=== PATIENT | female | born 1990 | race Caucasian/White ===

== ENCOUNTER → 2020-02-08 11:00 | Outpatient (CLI) | payer OTHER, SELFPAY ==
--- NOTE | 2020-02-08 11:06 | XR_ITS ---
PROCEDURE: XR HIP LT 2-3V W/PELVIS CLINICAL INDICATION: HIP PAIN Left hip pain COMPARISON: No exams were available for comparison FINDINGS: There is sclerosis of the left SI joint inferiorly. There is an IUD present. No fracture or dislocation. The hip joint has an unremarkable appearance. IMPRESSION: Left sacroiliac sclerosis suggesting sacroiliitis Dictated by: Gregory Wiley MD 02/08/2020 11:28 Electronically signed by Gregory Wiley MD in [place] 02/08/2020 11:28
== END ==
PROVIDERS: PCP Nurse Practitioner Family; Visit Provider Nurse Practitioner Family
DX: M25.552 Pain in left hip (principal)
CPT/HCPCS: 73502

== ENCOUNTER 2020-04-19 16:00 | Outpatient (RCR) | payer OTHER, SELFPAY ==
--- NOTE | 2020-02-26 16:01 | HMH.PTOPEV ---
PT Outpatient Evaluation Rehab PT Outpatient Evaluation Start: 02/26/20 15:48 Freq: Status: Active Protocol: Document 02/26/20 15:48 HARRY (Rec: 02/26/20 16:00 HARRY [id number]) Electronically Signed By Tanvir Salmon, PT 02/26/20 15:48 Outpatient Therapy Subjective History Subjective History Patient is a 29 year old female presenting to outpatient PT with reports of chronic L hip pain of insidious onset starting approx 2 years ago. Most recent exacerbation started 2 months ago. No recent imaging to report. No comorbidities to report. Chief Complaint Pain Symptom Type Sharp Symptoms Relieved By Rest/Positioning,Ice,OTC Meds Symptoms Aggravated By Standing,Physical Activity, Walking Prior Functional Limitations None Current Functional Limitations Housework,Standing,Squatting, Recreation Activity,Walking, Stairs,Bending/Stooping Symptom Description Constant but Variable Level of pain today (0-10) 5 Pain scale - at its best (0-10) 3 Pain scale - at its worst (0-10) 8 Hip/Knee Eval Gait Observation General Gait Pattern Observation Antalgic Gait,Decrease Weight Bear (L) Assistive Device Assistive Devices None / NA Palpation Tenderness left Knee Palpation Overall Comment Greater trochanter 3/4 Hip Palpation Findings Tenderness MMT Hip Flexion Strength Grade 4- Good- Hip Abduction Strength Grade 4 Good Hip Adduction Strength Grade 4- Good- Hip Extension Strength Grade 3+ Fair+ Hip External Rotation Strength Grade 3+ Fair+ Hip Internal Rotation Strength Grade 3+ Fair+ Knee Extension Strength Grade 4 Good Knee Flexion Strength Grade 4 Good ROM Hip Flexion w/Knee Extended Passive 68 Range of Motion (degrees) Hip Abduction Passive Range of Motion ( 45 degrees) Hip Extension Passive Range of Motion ( 18 degrees) Hip External Rotation Passive Range of 45 Motion (degrees) Hip Internal Rotation Passive Range of 12 Motion (degrees) Knee ROM Reason Not Measured Within Functional Limits Special Tests Hip Twin's Test Positive Left Hip Isela's Test Positive Left Hip Darrel Test Positive Left Hip Piriformis Test Positive Left Outpatient Therapy Assessment Impairments Problems/Impairmments Palpation Tender
--- NOTE | 2020-03-30 15:59 | HMH.RHREAS ---
Rehab Reassessment Rehab OP Re-assessment Start: 03/30/20 15:36 Freq: Status: Active Protocol: Document 03/30/20 15:36 HARRY (Rec: 03/30/20 15:58 HARRY [id number]) Electronically Signed By Tanvir Salmon, PT 03/30/20 15:36 Rehab Re-assessment Subjective Subjective Patient reports 75% improvement since start of care. Objective Objective Notes AROM:WNL MMT:WNL Pain: 0 currently; 5/10 at worst over past week Neuro: WNL TTP: L greater trochanter Assessment Progress Assessment Progressing as Expected Assessment Notes Overall improvements noted. Decreased intensity, frequency and duration of symptoms per patient report. She continues to have difficulty with prolonged standing/ambulatory activities resulting in function limitations with household, recreational and work related activites. Patient goals met STG's Goals Not Met LTG's Revised Goals NA Plan Plan Continue with POC Frequency of Therapy 2x/week Duration of therapy 3 weeks Time and Billing Re-Eval Time 15 Re-Eval Billing Units 1 PHYSICIAN CERTIFICATION: I certify the specified therapy services for Estela Lopez are required, authorized, and reviewed every 30 days.
== END 2020-04-19 16:05 | disposition home or self-care (01) ==
LOC: PT 16:00
PROVIDERS: PCP Nurse Practitioner Family; Visit Provider Nurse Practitioner Family
DX: M25.552 Pain in left hip (principal)
CPT/HCPCS: 20561; 97010; 97014; 97035; 97110; 97163; 97164; G0283

== ENCOUNTER → 2020-05-02 09:02 | Outpatient (POV) | payer OTHER, SELFPAY ==
[2020-05-02 09:21] VITALS: BP 120/71; PULSE 90; RESP 18; TEMP 36.8; O2SAT 98; BMI 40.6
--- NOTE | 2020-05-02 09:37 | HMH.PMCON ---
Assessment and Plan (1) Sacroiliitis Current visit: Yes Status: Acute Category: Medical Code(s): M46.1 - Sacroiliitis, not elsewhere classified - Assessment and plan all Dx Assessment and Plan for all problems:: We will set the patient up for a left SI joint injection. Given her symptomology and diagnostic imaging I do believe this would be beneficial. I will follow-up with her after this reassess her symptoms at that time she has been instructed to call the office if she has any issues prior to her next appointment. Dr. Guillen has reviewed this note and agrees with this plan of care. This note was dictated using voice recognition software and may contain errors or omissions HPI - Data of Consult Consult date: 05/02/20 Requesting Physician: Ashley Franks APRN Primary Care Provider: Alessandra Arrieta APRN - Consult Narrative Reason for consult: Left sacroiliitis History of present illness: Ms. Lopez is a 29 year old female who presents today for consultation regards her left lower back and hip pain. She has had this for 3 years. Patient states that it is been off and on however it is much more severe than it has been. She has a left hip x-ray showing sacroiliitis. She has a positive Roger test SI joint compression test and Nabil's test on the left side. Patient rates her pain today a 7 out of 10 she states that it is constant. She states that increased activity increases pain while ice decreases pain. She is tried physical therapy with no relief. She is tried dry needling with some relief. She is interested in injective therapy. CC: Ashley Franks APRN [facility] History I have reviewed the patient's past medical history: Yes Medical History: Denies:: Cancer, Diabetes Mellitus Type 1, Diabetes Mellitus Type 2, MRSA *Have you ever received a pneumonia vaccine?: Yes *Have you received a flu vaccine this season?: Yes Other Surgeries: Yes: No Previous Surgery Amputation: No Fractures: No - *Social History Smoking Status: Never smoker Alcohol Intake: never *Occupational Status:: other Housing: other Household Members: other *Travel in the last 8 weeks: None Family Hx:: No significant family history Review of Systems - Review of Systems ROS General: no recent weight change, no fever, no sleep disturbances Respiratory: no cough, no shortness of air, no recurring pulmonary infections Cardiovascular/Peripheral Vascular: No chest pain, No palpitations, no edema, no shortness of breath. Gastrointestinal: no new onset incontinence, normal bowel movements reported Genitourinary: no new onset incontinence Musculoskeletal: Left SI joint pain Psychiatric: normal mood/ affect Neurological: [denies new onset weakness in extremities], [denies new onset balance issues] Meds Allergies Allergy/AdvReac Type Severity Reaction Status Date / Time promethazine [From Phenergan] Allergy Verified 06/26/18 11:27 Objective Vital signs: Temp Pulse Resp BP Pulse Ox 98.2 F 90 18 120/71 98 05/02/20 09:21 05/02/20 09:21 05/02/20 09:21 05/02/20 09:21 05/02/20 09:21 Narrative: Physical Exam General: Alert and oriented x3, no acute distress, pleasant and cooperative, [on room air] Lungs: Resps E/U, Symmetrical chest expansion, Eyes: PERRL Musculoskeletal: Flexion and extension of lumbar spine somewhat guarded secondary to pain, deep tendon reflexes normal, strength in upper and lower extremities [5/5], antalgic gait noted Neurological: speech clear, full stack web developer equal, no gross sensory deficits Opioid Risk Tool - Opioid Risk Tool-Female Family hx alcohol abuse: N Family hx illegal drugs: N Family hx rx drug abuse: N Personal hx alcohol abuse: N Personal hx illegal drugs: N Personal hx rx drug abuse: N Age: 16-45 Hx of sexual abuse: N Mental health issues-ADD,OCD,Bipolar, etc: N Hx of depression: N Female Risk Score: 1
== END ==
PROVIDERS: PCP Nurse Practitioner Family; Visit Provider Clinical Nurse Specialist Family Health
DX: M46.1 Sacroiliitis, not elsewhere classified (principal)
CPT/HCPCS: 99202

== ENCOUNTER 2020-05-13 10:16 | Day surgery (SDC) | payer OTHER, SELFPAY ==
[2020-05-13 10:51] VITALS: BP 129/82; PULSE 73; RESP 18; TEMP 36.7; O2SAT 99; BMI 40.8
[2020-05-13 11:40] VITALS: BP 125/88; PULSE 85; PULSE 87; RESP 18; O2SAT 99
--- NOTE | 2020-05-13 11:44 | HMH.PMPROC ---
- Procedure Date: 05/13/20 Time: 11:44 Anesthesiologist:: Eb Guillen MD Complications:: None Pre-procedure Diagnosis:: Sacroiliitis Post-procedure Diagnosis:: Same Indications for Procedure:: This patient is a pleasant 29-year-old white female who we are treating for left hip pain. She is tender over her left SI joint. She has a positive Nabil's test on left side. She is positive SI joint compression test on left side. She is positive Roger test on left side. We will do a left SI joint injection under fluoroscopy today to help her with her pain symptoms. Procedure Details:: Left SI joint injection under fluoroscopy Informed consent was obtained and the risks and benefits of the procedure was explained to the patient. Patient was taken to the procedure room. Patient was placed prone on the procedure table. The left hip was prepped using ChloraPrep. The skin and subcutaneous tissues were anesthetized using lidocaine. I placed a 22-gauge spinal needle into the inferior aspect of the left SI joint. Needle placement was confirmed with dye. After this we injected 5 mL bupivacaine 0.25% and Depo-Medrol 40 mg into the left SI joint. The patient tolerated the procedure well with no complication. Plan and Disposition:: We will follow-up with her in 2 weeks. Will reevaluate symptoms at that time.
[2020-05-13 11:50] VITALS: BP 117/76; PULSE 77; RESP 20; O2SAT 99
== END 2020-05-13 11:50 | disposition home or self-care (01) ==
LOC: SC.PAINP 10:17
PROVIDERS: PCP Nurse Practitioner Family; Visit Provider Anesthesiology
DX: M46.1 Sacroiliitis, not elsewhere classified (principal)
CPT/HCPCS: 27096; G0260; J1030; J1040; Q9966

== ENCOUNTER → 2020-06-02 08:46 | Outpatient (POV) | payer OTHER, SELFPAY ==
--- NOTE | 2020-06-02 09:11 | HMH.PAINSOAP ---
[facility] Pain Management SOAP Note Subjective:: Patient is a 29-year-old white female who presents today for follow-up. She has been treated for left hip pain and low back pain. She underwent a left SI joint injection. She says that her pain is a 3 out of 10 today. She says she is feeling much better overall. She does report to have some achiness, however, she says it is nothing that she can tolerate and did not even need to take Tylenol. Patient says she is doing much better since having the injection. Review of Systems General: No recent weight changes, no fever, no sleep disturbances Respiratory: No cough, no shortness of air, no recurring pulmonary infections Cardiovascular/peripheral vascular: No chest pain, no palpitations, no edema, no shortness of breath Gastrointestinal: No new onset incontinence, normal bowel movements reported Genitourinary: No new onset incontinence Musculoskeletal: Left hip pain, left low back pain Psychiatric: Normal mood/affect Neurological: [Denies weakness in extremities], [denies balance issues] Objective:: Physical exam General: Alert and oriented x3, no acute distress, pleasant and cooperative, [on room air] Lungs: Respirations even and unlabored, symmetrical chest expansion Eyes: PERRL Musculoskeletal: Flexion and extension of lumbar spine somewhat guarded secondary to pain, deep tendon reflexes normal, strength in upper and lower extremities [5/5], [abnormal gait noted] also Clayton's test, positive Nabil's test, positive distraction test Neurological: Speech clear, senior market intelligence consultant equal, no gross sensory deficit Assessment:: Left hip pain, left sacroiliitis Plan:: Overall, the patient is doing well after her injection. We will plan to follow-up with her in 3 to contact the clinic if she has any concerns before her next appointment. The patient and I specifically discussed risk factors for COVID19. These risks include, but are not limited to age greater than 60, heart or lung disease, diabetes, immunosuppression, and travel. We also discussed NSAIDs may worsen COVID19 infection or symptoms. Patient should not use NSAIDs to treat COVID19 signs or symptoms. Patient was also informed that any type of corticosteroid of any form (oral or injection) will decrease the patient's immune system response and may increase the likelihood of COVID19 infection and symptoms[address] Dr. Guillen has reviewed this note and agrees with this plan of care. This note was dictated using voice recognition software and make contain errors or omissions. [facility] History I have reviewed the patient's past medical history: Yes Medical History: Denies:: Cancer, Diabetes Mellitus Type 1, Diabetes Mellitus Type 2, MRSA, Seizures *Have you ever received a pneumonia vaccine?: No *Have you received a flu vaccine this season?: No Other Surgeries: Yes: No Previous Surgery Amputation: No Fractures: No - *Social History Smoking Status: Never smoker Alcohol Intake: never Alcohol Intake Frequency:: other *Occupational Status:: employed Housing: other Household Members: other *Travel in the last 8 weeks: None Family Hx:: No significant family history
[2020-06-02 09:38] VITALS: BP 114/70; PULSE 65; RESP 18; TEMP 36.8; O2SAT 98; BMI 40.4
== END ==
PROVIDERS: PCP Nurse Practitioner Family; Visit Provider Clinical Nurse Specialist Family Health
DX: M25.552 Pain in left hip (principal); M46.1 Sacroiliitis, not elsewhere classified
CPT/HCPCS: 99212

== ENCOUNTER → 2020-11-25 09:56 | Outpatient (CLI) | payer BC, SELFPAY ==
[2020-11-25 10:45] LABS: Basophils % 0.5 % (0.1-2.0); Eosinophils # 0.1 K/mm3 (0.0-0.4); Eosinophils % 0.8 % (0.1-12.0); Hematocrit 41.5 % (37.0-47.0); Hemoglobin 13.6 g/dL (12.2-16.2); Lymphocytes % 27.4 % (10-50); Mean Corpuscular HGB Conc 32.8 g/dL (31.8-35.4); Mean Corpuscular Hemoglobin 28.4 pg (27.0-31.2); Mean Corpuscular Volume 86.6 fl (81-99); Monocytes # 0.3 K/mm3 (0.1-1.0); Monocytes % 4.4 % (1.7-9.3); Neutrophils # 4.9 K/mm3 (1.8-7.8); Neutrophils % 66.8 % (37.0-80.0); Platelet Count 294 K/mm3 (142-424); Red Blood Count 4.79 M/mm3 (4.20-5.40); Red Cell Distribution Width 12.9 % (11.5-17.5); White Blood Count 7.3 K/mm3 (4.8-10.8)
[2020-11-25 15:03] LABS: Strep Scrn Group A (Rapid) Negative (Negative)
== END ==
PROVIDERS: PCP Physician Assistant; Visit Provider Physician Assistant
DX: Z20.822 Contact with and (suspected) exposure to COVID-19 (principal); J02.9 Acute pharyngitis, unspecified
CPT/HCPCS: 85025; 87430; U0003

== ENCOUNTER → 2021-11-02 11:59 | Outpatient (CLI) | payer BC, SELFPAY ==
[2021-11-02 12:56] LABS: Adenovirus,PCR Not Detected (NotDetected); Bordetella Pertussis Not Detected (NotDetected); Chlamydophila Pneumoniae, PCR Not Detected (NotDetected); Coronavirus 19, PCR Not Detected (NotDetected); Coronavirus 229E Not Detected (NotDetected); Coronavirus NL63 Not Detected (NotDetected); Coronavirus OC43 Not Detected (NotDetected); Coronovirus HKU1,PCR Not Detected (NotDetected); Human Metapneumovirus Not Detected (NotDetected); Influenza A, PCR Not Detected (NotDetected); Influenza AH1, 2009 Not Detected (NotDetected); Influenza AH1, PCR Not Detected (NotDetected); Influenza AH3,PCR Not Detected (NotDetected); Influenza B, PCR Not Detected (NotDetected); Mycoplasma Pneumoniae, PCR Not Detected (NotDetected); Parainfluenza 1, PCR Not Detected (NotDetected); Parainfluenza 2, PCR Not Detected (NotDetected); Parainfluenza 3, PCR Not Detected (NotDetected); Parainfluenza 4, PCR Not Detected (NotDetected); Respiratory Syncytial Virus Not Detected (NotDetected); Rhinovirus/Enterovirus Not Detected (NotDetected)
[2021-11-02 13:03] LABS: Basophils # 0.1 K/mm3 (0-0.2); Basophils % 0.9 % (0.1-2.0); Eosinophils # 0.1 K/mm3 (0.0-0.4); Eosinophils % 1.7 % (0.1-12.0); Hematocrit 41.3 % (37.0-47.0); Hemoglobin 13.9 g/dL (12.2-16.2); Lymphocytes # 2.2 K/mm3 (0.7-4.5); Lymphocytes % 28.8 % (10-50); Mean Corpuscular HGB Conc 33.6 g/dL (31.8-35.4); Mean Corpuscular Hemoglobin 29.7 pg (27.0-31.2); Mean Corpuscular Volume 88.6 fl (81-99); Mean Platelet Volume 8.6 fl (7.4-10.4); Monocytes # 0.4 K/mm3 (0.1-1.0); Monocytes % 4.5 % (1.7-9.3); Neutrophils # 4.9 K/mm3 (1.8-7.8); Neutrophils % 64.1 % (37.0-80.0); Platelet Count 335 K/mm3 (142-424); Red Blood Count 4.66 M/mm3 (4.20-5.40); Red Cell Distribution Width 12.8 % (11.5-17.5); White Blood Count 7.7 K/mm3 (4.8-10.8)
== END ==
PROVIDERS: PCP Family Medicine; Visit Provider Physician Assistant
DX: Z20.822 Contact with and (suspected) exposure to COVID-19 (principal)
CPT/HCPCS: 36415; 85025; 87581; 87632; 87798; C9803; U0003; U0005

== ENCOUNTER → 2021-11-13 10:32 | Outpatient (CLI) | payer BC, SELFPAY ==
[2021-11-13 12:34] LABS: Free Thyroxine Index 2.9 ug/dL (5.93-13.13); T4 (Thyroxine) 11.1 ug/dl (5.53-11.0); Triiodothryronine (T3) Uptake 26 % (23.5-40.5)
[2021-11-13 12:48] LABS: Thyroid Stimulating Hormone 1.43 uIU/mL (0.465-4.68)
[2021-11-14 08:21] LABS: FSH 6.9 mIU/mL (.)
== END ==
PROVIDERS: Visit Provider Nurse Practitioner Obstetrics & Gynecology
DX: N92.6 Irregular menstruation, unspecified (principal)
CPT/HCPCS: 36415; 83001; 83002; 84436; 84443; 84479

== ENCOUNTER → 2021-11-16 14:12 | Outpatient (CLI) | payer BC, SELFPAY ==
--- NOTE | 2021-11-16 14:13 | US_ITS ---
FINAL REPORT CLINICAL HISTORY: Irregular periods FINDINGS: Transvaginal Ultrasound Technique: Transvaginal sonographic images of the pelvis were obtained. Findings: The uterus measures 7.4 x 4.6 x 4.4 cm. The endometrium is unremarkable. The right ovary measures 2.8 cm and contains small follicles. There is a complex cyst measuring 4.1 x 3.0 cm within the left ovary with multiple internal echoes that may represent a hemorrhagic cyst or follicle. There is no significant free fluid. IMPRESSION: 4 cm complex left ovarian cyst. Recommend follow-up in 6 weeks or 10 weeks to ensure physiologic involution. Reviewed, Interpreted and Dictated by Jose Lyn MD Transcribed by Mohinder Sutton Authenticated by Jose Lyn MD on 11/16/2021 04:26:05 PM [facility]
== END ==
PROVIDERS: PCP Family Medicine; Visit Provider Nurse Practitioner Obstetrics & Gynecology
DX: N92.6 Irregular menstruation, unspecified (principal)
CPT/HCPCS: 76830

== ENCOUNTER → 2022-08-21 14:58 | Outpatient (CLI) | payer BC, SELFPAY ==
[2022-08-21 15:22] LABS: Basophils # 0.1 K/mm3 (0-0.2); Basophils % 1.3 % (0.1-2.0); Eosinophils # 0.1 K/mm3 (0.0-0.4); Eosinophils % 1.6 % (0.1-12.0); Hematocrit 42.8 % (37.0-47.0); Hemoglobin 14.5 g/dL (12.2-16.2); Lymphocytes # 2.8 K/mm3 (0.7-4.5); Lymphocytes % 33.3 % (10-50); Mean Corpuscular HGB Conc 33.9 g/dL (31.8-35.4); Mean Corpuscular Hemoglobin 29.6 pg (27.0-31.2); Mean Corpuscular Volume 87.1 fl (81-99); Mean Platelet Volume 8.6 fl (7.4-10.4); Monocytes # 0.4 K/mm3 (0.1-1.0); Monocytes % 4.7 % (1.7-9.3); Neutrophils % 59.2 % (37.0-80.0); Platelet Count 437 K/mm3 (142-424); Red Blood Count 4.91 M/mm3 (4.20-5.40); Red Cell Distribution Width 12.8 % (11.5-17.5); White Blood Count 8.4 K/mm3 (4.8-10.8)
[2022-08-21 15:29] LABS: Strep Scrn Group A (Rapid) Negative (Negative)
== END ==
PROVIDERS: PCP Nurse Practitioner Family; Visit Provider Nurse Practitioner Family
DX: Z20.822 Contact with and (suspected) exposure to COVID-19 (principal)
CPT/HCPCS: 36415; 85025; 87275; 87276; 87430; C9803; U0003; U0005

== ENCOUNTER 2022-12-15 08:04 | Emergency (ER) | payer OTHER, SELFPAY ==
[2022-12-15 08:10] VITALS: BP 143/82; PULSE 86; RESP 18; TEMP 36.7; O2SAT 99; BMI 39.1
[2022-12-15 08:13] VITALS: BP 137/73; PULSE 90; RESP 20; TEMP 36.4; O2SAT 98; BMI 39.1
[2022-12-15 08:21] VITALS: BMI 39.1
--- NOTE | 2022-12-15 08:21 | XR_ITS ---
PROCEDURE INFORMATION: Exam: XR Right Foot Exam date and time: 12/15/2022 8:31 AM Age: 31 years old Clinical indication: Pain; Ankle; Right; Additional info: Hurt ankle- during a fall TECHNIQUE: Imaging protocol: Radiologic exam of the right foot. Views: 3 or more views. COMPARISON: CR XR ANKLE RT 2V 12/15/2022 8:29 AM FINDINGS: Bones/joints: hindfoot-midfoot and midfoot-forefoot articulations are normal. metatarsals and the phalanges without an acute process. subtalar joint and the tibiotalar joint appears normal. Early spur formation at the insertion of the Achilles' tendon and plantar aponeurosis. Soft tissues: Oz navicularis less likely avulsion fragment. Correlate regarding tenderness. Mild soft tissue swelling. IMPRESSION: 1. Oz navicularis less likely avulsion fragment. Correlate regarding tenderness. Mild soft tissue swelling. 2. Early spur formation at the insertion of the Achilles' tendon and plantar aponeurosis.
--- NOTE | 2022-12-15 08:21 | XR_ITS ---
PROCEDURE INFORMATION: Exam: XR Right Ankle Exam date and time: 12/15/2022 8:29 AM Age: 31 years old Clinical indication: Pain; Ankle; Right; Additional info: Hurt ankle during a fall TECHNIQUE: Imaging protocol: Radiologic exam of the right ankle. Views: 1 or 2 views. COMPARISON: No relevant prior studies available. FINDINGS: Bones/joints: Medial and lateral malleoli are normal. Ankle mortise is symmetrical. No fracture. Hindfoot is unremarkable. Tibiotalar joint and the subtalar joint appears normal. Small tiny avulsion injuries involving the distal aspect of the fibula well distal to the tibial plafond. 2 mm and 1 mm. Soft tissue swelling. Soft tissues: See Bones/joints finding. IMPRESSION: Small tiny avulsion injuries involving the distal aspect of the fibula well distal to the tibial plafond. 2 mm and 1 mm. Soft tissue swelling.
--- NOTE | 2022-12-15 08:43 | EXP.UTC ---
Discharge Plan Disposition Patient Disposition: Home, Self-Care Condition: Good Prescriptions Prescriptions: New ibuprofen 800 mg tablet 800 mg PO TID PRN (Reason: pain) Qty: 30 0RF No Action norgestimate-ethinyl estradiol [Sprintec (28)] 0.25-35 mg-mcg tablet 1 tab PO DAILY Referrals Follow up/Referrals: Rolf Brock MD [Primary Care Provider] - See instructions Atilio Cloud JR, MD [Physician] - See instructions Activity Restrictions/Add. Instructions Additional Instructions/Restrictions: *weight bearing as tolerated *RICE, Rest the extremity, Ice 15-20 minutes 3-4 times daily, Compress- wear the bob wrap as discussed as much as possible to help reduce swelling and pain, Elevate the extremity when at rest *Bob wrap is for support and help control swelling, use it except in the shower. Be sure that is not to tight but not to loose either. Wear air cast when up walking. *Elevate when resting? *Ibuprofen 600-800mg every 6-8 hours as needed for pain an inflammation. If need something more can take Tylenol in between doses of Ibuprofen to help Immediately follow up with your family doctor for new or worsening of symptoms, or no noticeable improvement over the next 3-5 days Follow up with ortho this week. Clinical Impressions Clinical Impression: Avulsion injury of right ankle region Instructions Patient Instructions: DI for Ankle Pain Discharge ED Provider: Kiara Shipley [facility] HPI General Stated complaint: [id number] right ankle Mode of Arrival: Ambulatory Source of Information: Patient Limitations: No Limitations Time Seen by Provider: 12/15/22 08:35 Description of Symptoms (Recalled from Triage Doc. by RN): right ankle injury HEENT Symptoms (Recalled from RN notes): No Resp Symptoms (Recalled from RN notes): No Skin Symptoms (Recalled from RN notes): No MS Symptoms (Recalled from RN notes): Yes Functional Status (Recalled from RN notes): n/a History of Present Illness Provider Complaint: Pt relates that she was at a hotel and wearing her socks on slick floor. Pt stats that she slipped and twisted her right ankle on 12/13/22. She reports that she iced and elevated the ankle and it helped. She states that she flew home yesterday (2 hour flight) and the ankle is even more sore and swollen. She states that she is concerned she may have broken something. Related Data Home Medications Medication Instructions Recorded Confirmed norgestimate 0.25 mg-ethinyl 1 tab PO DAILY control 12/15/22 12/15/22 estradiol 35 mcg tablet (Sprintec (28)) Previous Rx's Medication Instructions Recorded ibuprofen 800 mg tablet 800 mg PO TID PRN pain #30 tabs 12/15/22 Allergies Allergy/AdvReac Type Severity Reaction Status Date / Time promethazine [From Phenergan] Allergy Verified 12/15/22 08:33 Worker's Comp Is this a Worker's Comp case?: No [facility] Disclaimer: The information contained in this section may have been updated after the patient was seen, as this information can be updated by other users. Social History Smoking Status: Never smoker alcohol intake: never current occupational status: other Travel in the last 8 weeks: None household members: other housing: other current occupational exposures/hazards: No caffeine: Yes ROS Obtained: Yes All systems reviewed & no additional complaints except as documented Constitutional Constitutional: Reports system reviewed and no additional complaints, except as documented Eyes Eyes: Reports system reviewed and no additional complaints, except as documented ENT Ears, Nose, Mouth, and Throat: Reports system reviewed and no additional complaints, except as documented Cardiovascular Cardiovascular: Reports system reviewed and no additional complaints, except as documented Respiratory Respiratory: Reports system reviewed and no additional complaints, ex
[2022-12-15 09:19] VITALS: BP 137/73; PULSE 90; RESP 20; TEMP 36.4; O2SAT 98
== END 2022-12-15 09:17 | disposition home or self-care (01) ==
PROVIDERS: Emergency Provider Nurse Practitioner Family; PCP Internal Medicine Adolescent Medicine
DX: S82.831A Other fracture of upper and lower end of right fibula, initial encounter for closed fracture (principal); W18.49XA Other slipping, tripping and stumbling without falling, initial encounter; Y92.59 Other trade areas as the place of occurrence of the external cause
CPT/HCPCS: 73600; 73630; 99213; G0463

== ENCOUNTER 2024-04-02 21:38 | Emergency (ER) | payer OTHER, SELFPAY ==
[2024-04-02 21:39] VITALS: BP 115/76; PULSE 97; RESP 18; TEMP 36.6; O2SAT 100; BMI 33.6
[2024-04-02 21:48] VITALS: BP 115/76; PULSE 93; O2SAT 99
--- NOTE | 2024-04-02 21:54 | PC.NURSE ---
PVR 42 ml
[2024-04-02] MEDS: ONDANSETRON 4MG/2ML VIAL 4 MG IV (22:31)
[2024-04-02] MEDS: MORPHINE 4MG/ML SYRINGE 4 MG IV (22:31)
--- NOTE | 2024-04-02 22:33 | CT_ITS ---
PROCEDURE INFORMATION: Exam: CT Abdomen And Pelvis With Contrast Exam date and time: 04/02/2024 10:58 PM Age: 33 years old Clinical indication: Abdominal pain; Additional info: Deep pelvic pain and pressure, difficulty voiding TECHNIQUE: Imaging protocol: Computed tomography of the abdomen and pelvis with contrast. Radiation optimization: All CT scans at this facility use at least one of these dose optimization techniques: automated exposure control; mA and/or kV adjustment per patient size (includes targeted exams where dose is matched to clinical indication); or iterative reconstruction. Contrast material: ISOVUE; Contrast volume: 75 ml; Contrast route: IV; COMPARISON: CR XR HIP LT 2-3V W/PELVIS 02/08/2020 11:09 AM FINDINGS: Lungs: Calcified granulomata, otherwise clear basilar lung parenchyma. Pleural spaces: No pleural fluid or pneumothorax. Heart: Heart size is normal. Liver: Normal configuration. Homogeneous parenchyma. Gallbladder and bile ducts: No regional inflammation. No calcified stones. No ductal dilation. Pancreas: Normal. No ductal dilation. Spleen: Normal. No splenomegaly. Adrenal glands: Normal configuration. Kidneys and ureters: Kidneys enhance symmetrically and demonstrate no evidence of mass, calculus, obstruction, or inflammation. Stomach and bowel: Unremarkable. No obstruction. No mural thickening. Appendix: Normal appendix is confirmed. Intraperitoneal space: No free air. No significant fluid collection. Vasculature: Normal caliber arterial structures. Lymph nodes: No enlarged lymph nodes. Urinary bladder: Unremarkable as visualized. Reproductive: 3.5 cm left adnexal cyst. Normal contour uterus. Normal appearance of the right ovary. No inflammation in either adnexa. Bones/joints: No fracture or destructive lesion. Soft tissues: No perineal/perianal abscess or inflammation. IMPRESSION: 3.5 cm left adnexal cyst, otherwise no acute abnormality to explain patient's symptoms.
[2024-04-02 22:37] LABS: Basophils % 0.4 % (0.1-2.0); Eosinophils # 0.1 K/mm3 (0.0-0.4); Eosinophils % 0.6 % (0.1-12.0); Hematocrit 43.8 % (37.0-47.0); Hemoglobin 14.2 g/dL (12.2-16.2); Lymphocytes # 1.8 K/mm3 (0.7-4.5); Lymphocytes % 16.6 % (10-50); Mean Corpuscular HGB Conc 32.4 g/dL (31.8-35.4); Mean Corpuscular Hemoglobin 29.2 pg (27.0-31.2); Mean Corpuscular Volume 90.3 fl (81-99); Mean Platelet Volume 8.4 fl (7.4-10.4); Monocytes # 0.3 K/mm3 (0.1-1.0); Monocytes % 2.9 % (1.7-9.3); Neutrophils # 8.8 K/mm3 (1.8-7.8); Neutrophils % 79.5 % (37.0-80.0); Platelet Count 331 K/mm3 (142-424); Red Blood Count 4.85 M/mm3 (4.20-5.40); Red Cell Distribution Width 13.7 % (11.5-17.5)
[2024-04-02 22:38] LABS: Chloride 100 mmol/L (98-107); Potassium 4.2 mmoL/L (3.5-5.1); Sodium 137 mmol/L (136-145)
[2024-04-02 22:41] LABS: Alanine Aminotransferase 30 U/L (12-78); Albumin Level 4.7 g/dl (3.5-5.0); Albumin/Globulin Ratio 1.4 (1.1-1.8); Alkaline Phosphatase 89 U/L (38-126); Anion Gap 14.2 mEq/L (5-15); Aspartate Amino Transferase 30 U/L (14-36); Bilirubin,Total 0.9 mg/dl (0.2-1.3); Blood Urea Nitrogen 9 mg/dl (7-17); Calcium 9.6 mg/dl (8.4-10.2); Carbon Dioxide 27 mmol/L (22.0-30.0); Creatinine Clearance Estimated 144 mL/min (50-200); Estimated Glomerular Filt Rate 96 ml/min (>60); GFR (African American) 116 ML/MIN (>60); Globulin 3.4 g/dL (1.3-3.2); Glucose 106 mg/dl (74-100); Total Protein,Serum 8.1 g/dl (6.3-8.2)
[2024-04-02] MEDS: ACETAMINOPHEN 1,000MG/100ML VIAL 1000 MG IV (22:43)
[2024-04-02] MEDS: KETOROLAC 30MG/ML VIAL 30 MG IV (22:43)
[2024-04-02 22:44] LABS: HCG Qualitative, Serum Negative (Negative)
--- NOTE | 2024-04-02 22:52 | ED_ITS ---
Discharge Plan Disposition Patient Disposition: Home, Self-Care Condition: Good Prescriptions Prescriptions: New cefdinir 300 mg capsule 300 mg PO BID 10 Days Qty: 20 0RF ketorolac 10 mg tablet 10 mg PO Q8H PRN (Reason: pain) 3 Days Qty: 10 0RF phenazopyridine [Pyridium] 200 mg tablet 200 mg PO Q8H PRN (Reason: pain) Qty: 10 0RF ondansetron 4 mg tablet,disintegrating 4 mg PO Q8H PRN (Reason: nausea and vomiting) 4 Days Qty: 12 0RF No Action norgestimate-ethinyl estradiol [Sprintec (28)] 0.25-35 mg-mcg tablet 1 tab PO DAILY ibuprofen 800 mg tablet 800 mg PO TID PRN (Reason: pain) Qty: 30 0RF Referrals Follow up/Referrals: Cheyanne Ramey DO [Staff Physician] - See instructions Leobardo Vences MD [Staff Physician] - See instructions Sarah James DO [Staff Physician] - See instructions Rolf Brock MD [Primary Care Provider] - See instructions Activity Restrictions/Add. Instructions Additional Instructions/Restrictions: You were evaluated in the emergency department today and diagnosed with an ovarian cyst as well as a urinary tract infection. Please follow-up closely with gynecology for your ovarian cyst. 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 Toradol is an anti-inflammatory to take as needed for pain. Do not take other NSAIDs, such as ibuprofen, while taking this medication. In addition to these medications, you may also take Tylenol every 4-6 hours as needed for pain. Return to the emergency department for new or worsening symptoms. Clinical Impressions Clinical Impression: Abdominal pain, Dysuria, UTI (urinary tract infection), Cyst of left ovary Stand Alone Forms Stand Alone Forms: Work/School Release Instructions Patient Instructions: DI for Urinary Tract Infection (UTI), DI for Ovarian Cyst Discharge ED Provider: Ignacia Mcintyre General Adult HPI <Gerson Cobian MD - Last Filed: 04/02/24 23:00> General Chief complaint: Urogenital-Female Stated complaint: Pressure,painful urination,difficulty voiding Time Seen by Provider: 04/02/24 22:17 Mode of Arrival: Ambulatory Source of Information: Patient Limitations: No Limitations Description of Symptoms (Recalled from ER Triage Doc. by RN): Patient reports that her and her spouse were out in breaks earlier today and she began to experience symptoms that she believed was the start of a urinary tract infection. Patient states that at approximately 2100 she began experiencing 10/10 suprapubic pain described as constant pressure. Patient also reports that the last time she's been able to have a full urination was at 1930. Patient states that when she tries to urinate sometimes a stream will start then becomes painful and will stop. History of Present Illness HPI narrative: Patient is a 33-year-old female with past medical history of previous ovarian cyst who presents emergency department for evaluation of difficulty voiding. Onset was acute, over the last 24 hours. She has had significant pressure and pain with voiding. She has had chronic left lower quadrant abdominal pain in the setting of her known ovarian cyst however this pain is different. She has associated nausea and suprapubic pain as well as dysuria. She has chronic vaginal bleeding so is difficult to tell when her actual menstrual cycle is, no discharge. Due to persistent symptoms she presents here for continued evaluation. Related Data Home Medications Medication Instructions Recorded Confirmed norgestimate 0.25 mg-ethinyl 1 tab PO DAILY control 12/15/22 12/15/22 estradiol 35 mcg tablet (Sprintec (28)) Previous Rx's Medication Instructions Recorded ibuprofen 800 mg tablet 800 mg PO TID PRN pain #30 tabs 12/15/22 cefdinir 300 mg capsule 300 mg PO BID 10 days #20 caps 04/03/24 ketorolac 10 mg tablet 10 mg PO Q8H PRN pain 3 days #10 04/03/24 tabs ondansetron 4 mg disintegrating 4 mg PO Q8H PRN nausea and 04/03/24 tablet vomiting 4 days #12 tabs phenazopyridine 200 mg tablet 200 mg PO Q8H PRN pain #10 tabs 04/03/24 (Pyridium) Allergies Allergy/AdvReac Type Severity Reaction Status Date / Time promethazine [From Phenergan] Allergy Verified 12/15/22 08:33 COUNT INCLUDES THE [facility] <Gerson Cobian MD - Last Filed: 04/02/24 23:00> COUNT INCLUDES THE [facility] Disclaimer: The information contained in this section may have been updated after the patient was seen, as this information can be updated by other users. Social History Smoking Status: Never smoker alcohol intake: never current occupational status: other Travel in the last 8 weeks: None household members: other housing: other current occupational exposures/hazards: No caffeine: Yes <Gerson Cobian MD - Last Filed: 04/02/24 23:00> ROS Obtained: Yes Systems reviewed as appropriate & no additional complaints except as documented Physical Exam <Gerson Cobian MD - Last Filed: 04/02/24 23:00> General General appearance: alert and in distress Head Head exam: atraumatic and normocephalic Eye Eye exam: Present PERRL ENT ENT exam: Present mucous membranes moist Neck Neck exam: Present normal inspection Chest Chest inspection: Present normal inspection and symmetric chest wall rise Respiratory Respiratory exam: Present normal lung sounds bilaterally; Absent respiratory distress Cardiovascular Cardiovascular exam: Present regular rate and normal rhythm Abdominal Exam Abdominal exam: Present soft and guarding (Voluntary); Absent tenderness Extremities Exam Extremities exam: Present normal inspection Neurological Exam Neurological exam: Present alert Psychiatric Psychiatric exam: Present normal affect Skin Skin exam: Present warm and dry Medical Decision Making <Gerson Cobian MD - Last Filed: 04/02/24 23:00> Wood Inquiry Pt receiving controlled substance: No Vital Signs: 04/02/24 21:39 04/02/24 21:48 04/02/24 23:06 Temperature 97.8 F Temperature Source Oral Pulse Rate 93 H 86 Pulse Rate [Left Radial] 97 H Respiratory Rate 18 Blood Pressure 115/76 109/76 L Blood Pressure [Right Arm] 115/76 Blood Pressure Mean 89 Blood Pressure Mean [Right Arm] 89 Blood Pressure Source [Right Arm] Automatic Cuff Blood Pressure Position [Right Arm] Sitting 02 Sat by Pulse Oximetry 100 99 99 Oxygen Delivery Method Room Air Room Air 04/02/24 23:15 04/02/24 23:30 04/02/24 23:45 Temperature Temperature Source Pulse Rate 74 71 85 Pulse Rate [Left Radial] Respiratory Rate Blood Pressure 115/76 99/65 L 92/60 L Blood Pressure [Right Arm] Blood Pressure Mean Blood Pressure Mean [Right Arm] Blood Pressure Source [Right Arm] Blood Pressure Position [Right Arm] 02 Sat by Pulse Oximetry 100 100 100 Oxygen Delivery Method 04/03/24 00:00 Temperature Temperature Source Pulse Rate 68 Pulse Rate [Left Radial] Respiratory Rate Blood Pressure 100/58 L Blood Pressure [Right Arm] Blood Pressure Mean Blood Pressure Mean [Right Arm] Blood Pressure Source [Right Arm] Blood Pressure Position [Right Arm] 02 Sat by Pulse Oximetry 100 Oxygen Delivery Method Lab Data Lab Results 04/02/24 22:22: WBC 11.0 H, RBC 4.85, Hgb 14.2, Hct 43.8, MCV 90.3, MCH 29.2, MCHC 32.4, RDW 13.7, Plt Count 331, MPV 8.4, Neut % (Auto) 79.5, Lymph % (Auto) 16.6, Elbert % (Auto) 2.9, Eos % (Auto) 0.6, Baso % (Auto) 0.4, Neut # (Auto) 8.8 H, Lymph # (Auto) 1.8, Elbert # (Auto) 0.3, Eos # (Auto) 0.1, Baso # (Auto) 0.0, Sodium 137, Potassium 4.2, Chloride 100, Carbon Dioxide 27, Anion Gap 14.2, BUN 9, Creatinine 0.70, Estimated Creat Clear 144, Estimated GFR 96, Est GFR ( Amer) 116, Glucose 106 H, Calcium 9.6, Total Bilirubin 0.9, AST 30, ALT 30, Alkaline Phosphatase 89, Total Protein 8.1, Albumin 4.7, Globulin 3.4 H, Albumin/Globulin Ratio 1.4, Serum HCG, Qual Negative 04/03/24 01:01: Urine Color Yellow, Urine Appearance Clear, Urine pH 7.0, Ur Specific [place] 1.010, Urine Protein Trace, Urine Glucose (UA) Negative, Urine Ketones Trace, Urine Blood 2+, Urine Nitrate Negative, Urine Bilirubin Negative, Urine Urobilinogen 1.0, Ur Leukocyte Esterase 1+ A, Urine RBC 5-10, Urine WBC 10-20, Ur Squamous Epith Cells Occasional, Urine Bacteria 2+ 04/02/24 22:22 04/02/24 22:22 Orders (Tests/Meds): ED MEDICATIONS Generic Name Dose Route Start Last Admin Trade Name Freq PRN Reason Stop Dose Admin Sodium Chloride 10 ml 04/02/24 23:05 04/02/24 23:06 Sodium Chloride 0.9% 10ml Syr (Rad Only) IV 05/02/24 23:04 10 ml NEEDED PRN Administration Maintain IV Site Discontinued Medications Generic Name Dose Route Start Last Admin Trade Name Radha PRN Reason Stop Dose Admin Acetaminophen 1,000 mg 04/02/24 22:35 04/02/24 22:43 Acetaminophen 1,000mg/100ml Vial IV 04/02/24 22:36 1,000 mg ONCE ONE Administration Ceftriaxone Sodium 2 gm/ 100 mls @ 200 mls/hr 04/03/24 01:23 04/03/24 01:30 Sodium Chloride IV 04/03/24 01:52 200 mls/hr ONCE ONE Administration Iopamidol 75 ml 04/02/24 23:05 04/02/24 23:06 Iopamidol-370 (76%);100ml Bottle IV 04/02/24 23:06 75 ml ONCE ONE Administration Ketorolac Tromethamine 30 mg 04/02/24 22:35 04/02/24 22:43 Ketorolac 30mg/Ml Vial IV 04/02/24 22:36 30 mg ONCE ONE Administration Morphine Sulfate 4 mg 04/02/24 22:29 04/02/24 22:31 Morphine 4mg/Ml Syringe IV 04/02/24 22:30 4 mg ONCE ONE Administration Ondansetron HCl 4 mg 04/02/24 22:29 04/02/24 22:31 Ondansetron 4mg/2ml Vial IV 04/02/24 22:30 4 mg ONCE ONE Administration ORDERS Category Date Time Status CT abdomen pelvis w con Stat Cat Scan 04/02/24 22:33 Completed US transvaginal Stat Exams 04/03/24 00:01 Completed CMP [Comprehensive Metabolic Panel] Stat Lab 04/02/24 22:22 Completed Complete Blood Count Auto Diff Stat Lab 04/02/24 22:22 Completed HCG Qualitative, Serum Stat Lab 04/02/24 22:22 Completed UA [Urinalysis and Microscopic] Stat Lab 04/03/24 01:01 Completed Urine Culture Stat Micro 04/03/24 01:01 Received Medical Decision Narrative: In summary patient is a 33-year-old female past medical history described above who presents emergency department for evaluation of abdominal pain. Patient is hemodynamically stable nontoxic-appearing upon arrival, afebrile. Differential diagnosis includes urinary tract infection, ureterolithiasis, referred pain from ovarian pathology, appendicitis, among others. Given this workup will be conducted with hematologic labs, urinalysis, CT of the abdomen pelvis with IV contrast. Initial inventions include multimodal pain control, crystalloid bolus, Zofran. Initial workup reviewed by me, hematologic labs are nonactionable, no significant leukocytosis, hCG negative, no LARA or critical electrolyte abnormality. CT abdomen pelvis and repeat evaluation pending at time of transfer of care to the oncoming physician, Dr. Mcintyre. <Ignacia N Francisco Javier, DO - Last Filed: 04/03/24 01:58> Vital Signs: 04/02/24 21:39 04/02/24 21:48 04/02/24 23:06 Temperature 97.8 F Temperature Source Oral Pulse Rate 93 H 86 Pulse Rate [Left Radial] 97 H Respiratory Rate 18 Blood Pressure 115/76 109/76 L Blood Pressure [Right Arm] 115/76 Blood Pressure Mean 89 Blood Pressure Mean [Right Arm] 89 Blood Pressure Source [Right Arm] Automatic Cuff Blood Pressure Position [Right Arm] Sitting 02 Sat by Pulse Oximetry 100 99 99 Oxygen Delivery Method Room Air Room Air 04/02/24 23:15 04/02/24 23:30 04/02/24 23:45 Temperature Temperature Source Pulse Rate 74 71 85 Pulse Rate [Left Radial] Respiratory Rate Blood Pressure 115/76 99/65 L 92/60 L Blood Pressure [Right Arm] Blood Pressure Mean Blood Pressure Mean [Right Arm] Blood Pressure Source [Right Arm] Blood Pressure Position [Right Arm] 02 Sat by Pulse Oximetry 100 100 100 Oxygen Delivery Method 04/03/24 00:00 Temperature Temperature Source Pulse Rate 68 Pulse Rate [Left Radial] Respiratory Rate Blood Pressure 100/58 L Blood Pressure [Right Arm] Blood Pressure Mean Blood Pressure Mean [Right Arm] Blood Pressure Source [Right Arm] Blood Pressure Position [Right Arm] 02 Sat by Pulse Oximetry 100 Oxygen Delivery Method Lab Data Lab Results 04/02/24 22:22: WBC 11.0 H, RBC 4.85, Hgb 14.2, Hct 43.8, MCV 90.3, MCH 29.2, MCHC 32.4, RDW 13.7, Plt Count 331, MPV 8.4, Neut % (Auto) 79.5, Lymph % (Auto) 16.6, Elbert % (Auto) 2.9, Eos % (Auto) 0.6, Baso % (Auto) 0.4, Neut # (Auto) 8.8 H, Lymph # (Auto) 1.8, [place]bert # (Auto) 0.3, Eos # (Auto) 0.1, Baso # (Auto) 0.0, Sodium 137, Potassium 4.2, Chloride 100, Carbon Dioxide 27, Anion Gap 14.2, BUN 9, Creatinine 0.70, Estimated Creat Clear 144, Estimated GFR 96, Est GFR ( Amer) 116, Glucose 106 H, Calcium 9.6, Total Bilirubin 0.9, AST 30, ALT 30, Alkaline Phosphatase 89, Total Protein 8.1, Albumin 4.7, Globulin 3.4 H, Albumin/Globulin Ratio 1.4, Serum HCG, Qual Negative 04/03/24 01:01: Urine Color Yellow, Urine Appearance Clear, Urine pH 7.0, Ur Specific [place] 1.010, Urine Protein Trace, Urine Glucose (UA) Negative, Urine Ketones Trace, Urine Blood 2+, Urine Nitrate Negative, Urine Bilirubin Negative, Urine Urobilinogen 1.0, Ur Leukocyte Esterase 1+ A, Urine RBC 5-10, Urine WBC 10-20, Ur Squamous Epith Cells Occasional, Urine Bacteria 2+ Orders (Tests/Meds): ED MEDICATIONS Generic Name Dose Route Start Last Admin Trade Name Freq PRN Reason Stop Dose Admin Sodium Chloride 10 ml 04/02/24 23:05 04/02/24 23:06 Sodium Chloride 0.9% 10ml Syr (Rad Only) IV 05/02/24 23:04 10 ml NEEDED PRN Administration Maintain IV Site Discontinued Medications Generic Name Dose Route Start Last Admin Trade Name Freq PRN Reason Stop Dose Admin Acetaminophen 1,000 mg 04/02/24 22:35 04/02/24 22:43 Acetaminophen 1,000mg/100ml Vial IV 04/02/24 22:36 1,000 mg ONCE ONE Administration Ceftriaxone Sodium 2 gm/ 100 mls @ 200 mls/hr 04/03/24 01:23 04/03/24 01:30 Sodium Chloride IV 04/03/24 01:52 200 mls/hr ONCE ONE Administration Iopamidol 75 ml 04/02/24 23:05 04/02/24 23:06 Iopamidol-370 (76%);100ml Bottle IV 04/02/24 23:06 75 ml ONCE ONE Administration Ketorolac Tromethamine 30 mg 04/02/24 22:35 04/02/24 22:43 Ketorolac 30mg/Ml Vial IV 04/02/24 22:36 30 mg ONCE ONE Administration Morphine Sulfate 4 mg 04/02/24 22:29 04/02/24 22:31 Morphine 4mg/Ml Syringe IV 04/02/24 22:30 4 mg ONCE ONE Administration Ondansetron HCl 4 mg 04/02/24 22:29 04/02/24 22:31 Ondansetron 4mg/2ml Vial IV 04/02/24 22:30 4 mg ONCE ONE Administration ORDERS Category Date Time Status CT abdomen pelvis w con Stat Cat Scan 04/02/24 22:33 Completed US transvaginal Stat Exams 04/03/24 00:01 Completed CMP [Comprehensive Metabolic Panel] Stat Lab 04/02/24 22:22 Completed Complete Blood Count Auto Diff Stat Lab 04/02/24 22:22 Completed HCG Qualitative, Serum Stat Lab 04/02/24 22:22 Completed UA [Urinalysis and Microscopic] Stat Lab 04/03/24 01:01 Completed Urine Culture Stat Micro 04/03/24 01:01 Received Medical Decision Narrative: In summary patient is a 33-year-old female past medical history described above who presents emergency department for evaluation of abdominal pain. Patient is hemodynamically stable nontoxic-appearing upon arrival, afebrile. Differential diagnosis includes urinary tract infection, ureterolithiasis, referred pain from ovarian pathology, appendicitis, among others. Given this workup will be conducted with hematologic labs, urinalysis, CT of the abdomen pelvis with IV contrast. Initial inventions include multimodal pain control, crystalloid bolus, Zofran. Initial workup reviewed by me, hematologic labs are nonactionable, no significant leukocytosis, hCG negative, no ALRA or critical electrolyte abnormality. CT abdomen pelvis and repeat evaluation pending at time of transfer of care to the oncoming physician, Dr. Mcintyre. Francisco Javier, DO: On my assessment of the patient, she is resting comfortably but can planes of some lingering pain. CT scan demonstrates ovarian cyst, and given continued pain, transvaginal ultrasound was ordered to evaluate for possible ovarian torsion. I independently interpreted ultrasound prior to radiology read and noted good blood flow to her ovaries. Please see radiology read for final interpretation. Urine is concerning for infection with leukocyte esterase, bacteria, blood, as well as with trace proteinuria, which could indicate pyelonephritis. Given this, patient was given a dose of IV Rocephin here. She is resting comfortably on repeat examination, and I do feel that discharge home is appropriate with close outpatient follow-up and strict return precautions. She was given prescriptions for cefdinir, Pyridium, Zofran, and Toradol. She was given instructions for gynecology follow-up given her ovarian cyst. Patient was discharged with very strict return precautions after all questions were answered. Critical Care <Gerson Cobian MD - Last Filed: 04/02/24 23:00> Critical Care Time Critical Care Time: No
[2024-04-02 23:06] VITALS: BP 109/76; PULSE 86; O2SAT 99
[2024-04-02] MEDS: IOPAMIDOL-370 (76%);100ML BOTTLE 75 ML IV (23:06)
[2024-04-02] MEDS: SODIUM CHLORIDE 0.9% 10ML SYR (RAD ONLY) 10 ML IV (23:06)
--- NOTE | 2024-04-02 23:06 | PC.NURSE ---
I rounded on the pt. no new complaints at this time. vss. pt states she still feels pressure in her abd but the pain is almost gone. 12/28
[2024-04-02 23:15] VITALS: BP 115/76; PULSE 74; O2SAT 100
[2024-04-02 23:30] VITALS: BP 99/65; PULSE 71; O2SAT 100
[2024-04-02 23:45] VITALS: BP 92/60; PULSE 85; O2SAT 100
[2024-04-03] VITALS: BP 100/58; PULSE 68; O2SAT 100
--- NOTE | 2024-04-03 00:01 | US_ITS ---
PROCEDURE INFORMATION: Exam: US Pelvis, Transvaginal, Non-Obstetric Exam date and time: 04/03/2024 12:30 AM Age: 33 years old Clinical indication: Pelvic pain; Additional info: Large cyst, pelvic pain, R/O torsion TECHNIQUE: Imaging protocol: Real-time transvaginal pelvic (non-obstetric) ultrasound with image documentation. Transvaginal imaging was used for better evaluation of the endometrium, adnexa, and/or cervix. COMPARISON: US TRANSVAGINAL 11/16/2021 2:28 PM FINDINGS: Uterus: Normal uniform endometrium. Right ovary/adnexa: Physiologic appearance of the right ovary measuring 1.9 x 3.4 x 2.0 cm. Color Doppler flow imaging and spectral analysis confirm appropriate arterial and venous waveforms. Left ovary/adnexa: Left ovary is expanded by a large cyst. Left ovary measures 3.8 x 3.4 x 4.2 cm for a volume of 28 cc. Dominant cyst measures 3.1 cm in diameter. Color Doppler flow imaging and spectral analysis confirm appropriate arterial and venous waveforms. Urinary bladder: Urinary bladder is limited. Intraperitoneal space: No free fluid. IMPRESSION: Dominant cyst noted in the left ovary. Normal blood flow is confirmed in each ovary.
--- NOTE | 2024-04-03 00:01 | PC.NURSE ---
contacted rad for ultrasound secondary to r/o torsion
--- NOTE | 2024-04-03 01:00 | PC.NURSE ---
returned from US via [employer] and [employer]
[2024-04-03 01:05] LABS: Microscopic, Urine URINE MICROSCOPIC (MICROSCOPIC)
[2024-04-03 01:06] LABS: Appearance,Urine CLEAR (Clear); Bilirubin,Urine Negative (Negative); Blood, Urine 2+ (Negative); Color,Urine YELLOW (Yellow); Glucose,Urine (UA) Negative (Negative); Ketones,Urine TRACE (Negative); Leukocyte Esterase,Urine 1+ (Negative); Nitrate,Urine Negative (Negative); Protein,Urine TRACE (Negative)
[2024-04-03 01:22] LABS: Bacteria,Urine 2+ /lpf; Squamous Epithelial Cell,Urine Occasional #/hpf (0-5)
[2024-04-03] MEDS: CEFTRIAXONE SODIUM 2 GM in 0.9 % SODIUM CHLORIDE 100 ML IV (01:30)
[2024-04-03 02:08] VITALS: BP 118/68; PULSE 78; RESP 18; TEMP 36.9; O2SAT 99
== END 2024-04-03 02:10 | disposition home or self-care (01) ==
PROVIDERS: Emergency Medicine; Emergency Provider Emergency Medicine; PCP Internal Medicine Adolescent Medicine
DX: R10.32 Left lower quadrant pain; N39.0 Urinary tract infection, site not specified; B96.1 Klebsiella pneumoniae [K. pneumoniae] as the cause of diseases classified elsewhere; R30.0 Dysuria; N83.202 Unspecified ovarian cyst, left side; R11.0 Nausea
CPT/HCPCS: 74177; 76830; 80053; 81001; 84703; 85025; 87086; 87088; 87186; 96365; 96375; 99285; J0131; J0696; J1885; J2270; J2405; Q9967

== ENCOUNTER 2024-06-07 22:17 | Emergency (ER) | payer OTHER, SELFPAY ==
[2024-06-07 22:17] VITALS: BP 110/74; PULSE 80; RESP 18; TEMP 36.6; O2SAT 97; BMI 34.0
[2024-06-07 22:30] VITALS: BP 117/80; PULSE 82; RESP 26; O2SAT 99
--- NOTE | 2024-06-07 22:40 | ECG_ITS ---
APPROVED REPORT Exam: Resting ECG HR:87 bpm ECG Measurements Heart Rate 87 AXES IN 132 P 50 QRSd 85 QRS 47 QT 357 T 49 QTc 402 Conclusion Sinus rhythm Electronically signed by : SHERRELL OLVERA, 06/07/2024 23:28:03
--- NOTE | 2024-06-07 22:40 | XR_ITS ---
PROCEDURE INFORMATION: Exam: XR Chest Exam date and time: 06/07/2024 11:42 PM Age: 33 years old Clinical indication: Pain; Chest pressure; Additional info: Chest pain TECHNIQUE: Imaging protocol: Radiologic exam of the chest. Views: 2 views. COMPARISON: CT ABDOMEN PELVIS W CON 04/02/2024 10:58 PM FINDINGS: Lungs: Unremarkable. No consolidation. Pleural spaces: Unremarkable. No pleural effusion. No pneumothorax. Heart/Mediastinum: Unremarkable. No cardiomegaly. Vasculature: Unremarkable. Bones/joints: Unremarkable. IMPRESSION: No acute findings.
[2024-06-07 22:46] LABS: Basophils # 0.1 K/mm3 (0-0.2); Basophils % 0.7 % (0.1-2.0); Eosinophils # 0.1 K/mm3 (0.0-0.4); Eosinophils % 0.9 % (0.1-12.0); Hematocrit 39.2 % (37.0-47.0); Hemoglobin 13.1 g/dL (12.2-16.2); Lymphocytes # 2.8 K/mm3 (0.7-4.5); Lymphocytes % 29.6 % (10-50); Mean Corpuscular HGB Conc 33.4 g/dL (31.8-35.4); Mean Corpuscular Hemoglobin 29.4 pg (27.0-31.2); Mean Corpuscular Volume 88.3 fl (81-99); Mean Platelet Volume 8.8 fl (7.4-10.4); Monocytes # 0.4 K/mm3 (0.1-1.0); Monocytes % 4.8 % (1.7-9.3); Platelet Count 320 K/mm3 (142-424); Red Blood Count 4.43 M/mm3 (4.20-5.40); Red Cell Distribution Width 13.1 % (11.5-17.5); White Blood Count 9.3 K/mm3 (4.8-10.8)
[2024-06-07 22:48] LABS: Albumin Level 4.5 g/dl (3.5-5.0); Chloride 104 mmol/L (98-107); Potassium 3.4 mmoL/L (3.5-5.1); Sodium 138 mmol/L (136-145)
[2024-06-07 22:51] LABS: Alanine Aminotransferase 29 U/L (12-78); Albumin/Globulin Ratio 1.5 (1.1-1.8); Alkaline Phosphatase 82 U/L (38-126); Anion Gap 8.4 mEq/L (5-15); Aspartate Amino Transferase 29 U/L (14-36); Bilirubin,Total 0.8 mg/dl (0.2-1.3); Blood Urea Nitrogen 10 mg/dl (7-17); Carbon Dioxide 29 mmol/L (22.0-30.0); Creatinine Clearance Estimated 170 mL/min (50-200); Estimated Glomerular Filt Rate 114 ml/min (>60); GFR (African American) 138 ML/MIN (>60); Total Protein,Serum 7.5 g/dl (6.3-8.2)
[2024-06-07 22:52] LABS: Calcium 8.9 mg/dl (8.4-10.2); Glucose 126 mg/dl (74-100)
--- NOTE | 2024-06-07 22:57 | HMH.EDCP ---
Discharge Plan Disposition Patient Disposition: Home, Self-Care Condition: Good Prescriptions Prescriptions: New omeprazole 20 mg capsule,delayed release(DR/EC) 20 mg PO DAILY 14 Days Qty: 14 0RF No Action prochlorperazine maleate 5 mg tablet PO PRN Patient Comments: TAKE 1 TABLET BY MOUTH THREE TIMES DAILY NEEDED Referrals Follow up/Referrals: Gabrielle Coulter MD [Primary Care Provider] - See instructions Activity Restrictions/Add. Instructions Additional Instructions/Restrictions: You were evaluated in the ER and are appropriate for discharge at this time. Take the prescribed omeprazole as directed. Make an appointment with your primary care physician for reevaluation in a few days. Return to the ER with new, worsening, or otherwise concerning symptoms. Clinical Impressions Clinical Impression: Abdominal pain, epigastric, Chest pain Print Language Print Language: Syriac Discharge ED Provider: Ian Trevino General Chief Complaint: Chest Pain Stated Complaint: CP Time Seen by Provider: 06/07/24 22:55 Mode of Arrival: Ambulatory Source of Information: Patient Limitations: No Limitations Description of Symptoms (Recalled from ER Triage Doc. by RN): Pt presents with chest pain that started at 2000, pt thought it was indigestion, pain has increased over the past couple hours. No cardiac hx, no SOA History of Present Illness HPI narrative: 33-year-old female presents to the ER with complaints of chest/upper abdominal pain that started around 8 PM. Patient thought it was indigestion because she has had nausea and 1 episode of emesis. She states pain has increased over the past couple hours. She has no history of cardiac abnormalities or pulmonary problems. She has no known history of gallbladder problems. She points to the epigastric region when reporting the majority of her pain but states it radiates across the top of the abdomen both to the left and the right. She also reports this pain radiates through to her back. She describes it as gradual onset but progressively worsening. She reports an history of allergy to Phenergan and worsening nausea with Zofran. She states she tried taking Tums and ibuprofen at home without relief. Patient does report that this weekend she had a few mixed drinks, but she does not report a otherwise significant alcohol intake at baseline. ROS otherwise negative Related Data Home Medications ?Medication ?Instructions ?Recorded ?Confirmed prochlorperazine maleate 5 mg mg PO PRN 04/09/24 05/05/24 tablet Previous Rx's ?Medication ?Instructions ?Recorded omeprazole 20 mg capsule,delayed 20 mg PO DAILY 14 days #14 caps 06/08/24 release Allergies Allergy/AdvReac Type Severity Reaction Status Date / Time promethazine [From Phenergan] Allergy Verified 05/05/24 08:53 [facility] Disclaimer: The information contained in this section may have been updated after the patient was seen, as this information can be updated by other users. Medical History (Updated 06/08/24 @ 02:45 by Ian Trevino MD) Dysuria Ovarian cyst Surgical History No history of previous surgery Family History Other Cancer Thyroid disorder Social History Smoking Status: Never smoker alcohol intake: never current occupational status: other Travel in the last 8 weeks: None household members: other housing: other current occupational exposures/hazards: No caffeine: Yes ROS Obtained: Yes All systems reviewed & no additional complaints except as documented Positive ROS per HPI Physical Exam General General appearance: alert Comment: Patient is clearly in pain but in no acute distress, nontoxic appearing Head Head exam: atraumatic and normocephalic Eye Eye exam: Present PERRL and EOMI ENT ENT exam: Present mucous membranes moist Neck Neck exam: Present normal inspection and full ROM Chest Chest inspection: Present symmetric chest wall rise Respiratory Respiratory exam: Present normal lung sounds bilaterally; Absent respiratory distress, wheezes or stridor Cardiovascular Cardiovascular exam: Present regular rate and normal rhythm Abdominal Exam Abdominal exam: Present soft and tenderness (Epigastric and left upper quadrant); Absent distention, guarding, rebound or rigidity Extremities Exam Extremities exam: Present full ROM; Absent edema Neurological Exam Neurological exam: Present alert and oriented X3; Absent motor sensory deficit Psychiatric Psychiatric exam: Present normal affect and normal mood Skin Skin exam: Present warm and dry HEART Score HEART Score HEART Score assessment performed?: Yes History (anamnesis): Slightly suspicious ECG: Normal Age: <45 years Risk factors: 1-2 risk factors Troponin: </= normal limit HEART Score: 1 Critical Care Critical Care Time Critical Care Time: No Medical Decision Making Medical Records Medical records reviewed: Yes I reviewed the patient's medical records. MR Comment: Most recent exam with [employer] in April was reassuring. Routine Pap smear with HPV testing was sent. Patient was evaluated for abdominal pain in our ER in March. Labs at that time were reassuring. CT imaging demonstrated ovarian cyst for which transvaginal ultrasound was performed. No torsion. Patient did have UTI. Wood Inquiry Pt receiving controlled substance: No Vital Signs Vital Signs: 06/07/24 22:17 06/07/24 22:30 06/07/24 23:31 Temperature 98 F Temperature Source Oral Pulse Rate 82 78 Pulse Rate [Left] 80 Respiratory Rate 18 26 H 16 Blood Pressure 117/80 92/55 L Blood Pressure [Right Arm] 110/74 Blood Pressure Mean 89 Blood Pressure Mean [Right Arm] 86 Blood Pressure Source Automatic Cuff Blood Pressure Position Supine Blood Pressure Position [Right Arm] Sitting 02 Sat by Pulse Oximetry 97 99 100 Oxygen Delivery Method Room Air Room Air Lab Data Labs: Lab Results 06/07/24 22:20: WBC 9.3, RBC 4.43, Hgb 13.1, Hct 39.2, MCV 88.3, MCH 29.4, MCHC 33.4, RDW 13.1, Plt Count 320, MPV 8.8, Neut % (Auto) 64.0, Lymph % (Auto) 29.6, [place] % (Auto) 4.8, Eos % (Auto) 0.9, Baso % (Auto) 0.7, Neut # (Auto) 6.0, Lymph # (Auto) 2.8, [place] # (Auto) 0.4, Eos # (Auto) 0.1, Baso # (Auto) 0.1, Sodium 138, Potassium 3.4 L, Chloride 104, Carbon Dioxide 29, Anion Gap 8.4, BUN 10, Creatinine 0.60, Estimated Creat Clear 170, Estimated GFR 114, Est GFR ( Amer) 138, Glucose 126 H, Calcium 8.9, Total Bilirubin 0.8, AST 29, ALT 29, Alkaline Phosphatase 82, Troponin I < 0.01, Total Protein 7.5, Albumin 4.5, Globulin 3.0, Albumin/Globulin Ratio 1.5, Lipase 84, Serum HCG, Qual Negative 06/08/24 02:00: Troponin I < 0.01 06/07/24 22:20 06/07/24 22:20 Response Orders (Tests/Meds): ED MEDICATIONS Generic Name Dose Route Start Last Admin Trade Name Freq PRN Reason Stop Dose Admin Sodium Chloride 10 ml 06/08/24 00:04 06/08/24 00:05 Sodium Chloride 0.9% 10ml Syr (Rad Only) IV 07/08/24 00:03 10 ml NEEDED PRN Administration Maintain IV Site Discontinued Medications Generic Name Dose Route Start Last Admin Trade Name Freq PRN Reason Stop Dose Admin Hydromorphone HCl 0.5 mg 06/07/24 23:04 06/07/24 23:21 Hydromorphone 2mg/Ml Syringe IV 06/07/24 23:05 0.5 mg ONCE ONE Administration Lactated Ringer's 1,000 mls @ 999 mls/hr 06/07/24 23:04 06/07/24 23:20 Lactated Ringer's 1000 Ml Bag IV 06/08/24 00:04 999 mls/hr .Q1H1M ONE Administration Iopamidol 75 ml 06/08/24 00:04 06/08/24 00:05 Iopamidol-370 (76%);100ml Bottle IV 06/08/24 00:05 75 ml ONCE ONE Administration Metoclopramide HCl 10 mg 06/07/24 23:09 06/07/24 23:21 Metoclopramide Hcl 10mg/2ml Vial IVP 06/07/24 23:10 10 mg ONCE ONE Administration ORDERS Category Date Time Status CT abdomen pelvis w con Stat Cat Scan 06/07/24 23:20 Completed XR chest 2V Stat Exams 06/07/24 22:40 Completed Beta HCG, Qual [HCG Qualitative, Serum] Stat Lab 06/07/24 22:20 Completed Complete Blood Count Auto Diff Stat Lab 06/07/24 22:20 Completed Comprehensive Metabolic Panel Stat Lab 06/07/24 22:20 Completed Lipase Stat Lab 06/07/24 22:20 Completed Troponin I Q3H Lab 06/07/24 22:20 Completed Troponin I Q3H Lab 06/08/24 02:00 Completed Troponin I Q3H Lab 06/08/24 04:45 Ordered MDM Narrative Medical Decision Narrative: In summary, this 33-year-old female presents to the emergency department today with upper abdominal pain radiating into the chest and back, gradual in onset associated with nausea. On initial evaluation patient is hemodynamically stable, afebrile, tenderness to palpation of the epigastric and left upper quadrant region without rebound or guarding, nonacute abdomen, cardiopulmonary exam is reassuring. Differential diagnosis includes but is not limited to ACS, I considered PE however patient is PERC negative so I do not believe this needs to be pursued, I also considered pancreatitis, esophageal spasm, choledocholithiasis. Based on these concerns, I ordered serum labs, cardiac workup, lipase, CT abdomen pelvis. ECG personally interpreted demonstrates sinus rhythm, rate 87, normal axis, normal PA and QTc, no STEMI. Patient received IV fluids, Dilaudid, Reglan for treatment. Labs personally reviewed demonstrate normal CBC, nonactionable CMP, initial troponin undetectably low at less than 0.01. , Repeat troponin pending. Lipase normal. test negative. CT abdomen pelvis personally interpreted demonstrates multiple cysts in the left ovary. Patient does not have pain in the lower abdomen or pelvis. She did not have tenderness in the area on exam. This does not correlate with her clinical presentation today. She is appropriate for outpatient follow-up for these cysts. See radiology read for final interpretation. Patient was placed in ED observation at 0030 for serial troponins to rule out evolving VA and preclude unnecessary admission. On reassessment patient has had improvement of pain. She is now tolerating oral intake. She has been monitored with frequent reassessment and has not had any concerning changes in her vitals. She has remained stable. Repeat troponin undetectably low at less than 0.01, no significant delta. At this time given patient's good control of symptoms I believe she is appropriate for discharge. She believes her symptoms were associated with indigestion and given the location of symptoms this is a possibility so omeprazole was prescribed for outpatient management of symptoms. Patient was given instructions on symptomatic management, follow up instructions, and return precautions for the emergency department. Patient indicated understanding and was discharged in stable condition. Total time in ED observation: 2 hours and 17 minutes
[2024-06-07 23:04] LABS: Troponin I < 0.01 ng/ml (0.00-0.034)
[2024-06-07 23:10] LABS: HCG Qualitative, Serum Negative (Negative)
[2024-06-07 23:18] LABS: Lipase 84 U/L (23-300)
[2024-06-07] MEDS: LACTATED RINGERS 1000ML 1,000 ML 999 ML IV (23:20)
--- NOTE | 2024-06-07 23:20 | CT_ITS ---
PROCEDURE INFORMATION: Exam: CT Abdomen And Pelvis With Contrast Exam date and time: 06/08/2024 12:00 AM Age: 33 years old Clinical indication: Nausea; Additional info: Epigastric and luq abd ttp, nausea TECHNIQUE: Imaging protocol: Computed tomography of the abdomen and pelvis with contrast. Radiation optimization: All CT scans at this facility use at least one of these dose optimization techniques: automated exposure control; mA and/or kV adjustment per patient size (includes targeted exams where dose is matched to clinical indication); or iterative reconstruction. Contrast material: ISOVUE; Contrast volume: 75 ml; Contrast route: IV; COMPARISON: 1. US TRANSVAGINAL 04/03/2024 12:[address] ABDOMEN PELVIS W CON 04/02/2024 10:58 PM FINDINGS: Lungs: Calcified granulomas left lung base. Liver: Normal. No mass. Gallbladder and biliary ducts: Normal. No calcified stones. No ductal dilation. Pancreas: Normal. No ductal dilation. Spleen: Normal. No splenomegaly. Adrenal glands: Normal. No mass. Kidneys and ureters: Normal. No hydronephrosis. Stomach and bowel: Unremarkable. No obstruction. No mucosal thickening. Appendix: No evidence of appendicitis. Intraperitoneal space: Trace free pelvic fluid is noted. Vasculature: Unremarkable. No abdominal aortic aneurysm. Lymph nodes: Small calcified bilateral hilar lymph nodes. Urinary bladder: Unremarkable as visualized. Reproductive: Enlarged multi cystic left ovary measuring approximately 4.9 x 6.2 x 5.9 cm. The uterus and right ovary are unremarkable. Bones/joints: Unremarkable. No acute fracture. Soft tissues: Unremarkable. IMPRESSION: 1. There is no acute process evident within the abdomen or pelvis. 2. Enlarging left ovarian cysts. Follow-up nonemergent pelvic ultrasound is recommended.
[2024-06-07] MEDS: METOCLOPRAMIDE HCL 10MG/2ML VIAL 10 MG IVP (23:21)
[2024-06-07] MEDS: HYDROMORPHONE 2MG/ML SYRINGE 0.5 MG IV (23:21)
[2024-06-07 23:31] VITALS: BP 92/55; PULSE 78; RESP 16; O2SAT 100
[2024-06-08] MEDS: IOPAMIDOL-370 (76%);100ML BOTTLE 75 ML IV (00:05)
[2024-06-08] MEDS: SODIUM CHLORIDE 0.9% 10ML SYR (RAD ONLY) 10 ML IV (00:05)
[2024-06-08 02:37] LABS: Troponin I < 0.01 ng/ml (0.00-0.034)
[2024-06-08 02:48] VITALS: BP 106/69; PULSE 77; RESP 16; TEMP 37; O2SAT 100
== END 2024-06-08 02:54 | disposition home or self-care (01) ==
PROVIDERS: Emergency Medicine; Emergency Provider Emergency Medicine; PCP Family Medicine
DX: R10.13 Epigastric pain (principal); R07.9 Chest pain, unspecified; R11.2 Nausea with vomiting, unspecified
CPT/HCPCS: 71046; 74177; 80053; 83690; 84484; 84703; 85025; 93005; 96361; 96374; 96375; 99285; J1170; J2765; J7120; Q9967

== ENCOUNTER 2024-07-15 12:44 | Outpatient (CLI) | payer OTHER, SELFPAY ==
--- NOTE | 2024-07-15 12:44 | US_ITS ---
PROCEDURE: US TRANSVAGINAL CLINICAL INDICATION: 3 month follow up to Lt. ovarian cyst COMPARISON: US US TRANSVAGINAL from 04/03/2024 FINDINGS: Transvaginal sonographic images of the pelvis were obtained. UTERUS: 7.4cm x 5.2cmx 4.3cm anteverted with a combined endometrial thickness of 3mm. LEFT OVARY: 4.5cmx4.2 cmx2.4cm with a volume of 23.8ml. The left ovary has a similar appearance from her last ultrasound in March 2024. There is a multi cystic area adjacent to the left ovary that measures 3.9 cm x 3.1 cm x 2.9 cm. This could represent a hydrosalpinx. There has been no change in the size of this area since her last examination. RIGHT OVARY: 5.5 cmx 2.3cmx3.3cm with a volume of 21.5ml. There is a follicle in the right ovary measuring 4.0 cm x 2.6 cm x 2.5 cm. Both ovaries are seen and appear normal. Doppler flow to both ovaries are seen. There is no fluid in the cul-de-sac. IMPRESSION: 1. Anteverted uterus normal in shape and size. The endometrium is thin measuring 3.0 mm. 2. The left ovary has a similar appearance to her last ultrasound in March of 2024. 3. There is a cystic structure adjacent to the left ovary that could represent a hydrosalpinx or simple follicle. 4. There is a follicle in the right ovary measuring 4 cm. 5. No fluid in the cul-de-sac. Dictated by: Leobardo Vences MD 07/15/2024 16:50 Leobardo Vences MD in [place] 07/15/2024 16:50
== END 2024-07-15 23:59 | disposition home or self-care (01) ==
LOC: RAD 12:44
PROVIDERS: PCP Family Medicine; Visit Provider Nurse Practitioner Obstetrics & Gynecology
DX: N83.202 Unspecified ovarian cyst, left side (principal)
CPT/HCPCS: 76830

== ENCOUNTER 2025-05-03 11:31 | Outpatient (CLI) | payer OTHER, SELFPAY ==
--- OUTSIDE RECORDS SUMMARY | 2024-11-03 05:15 | XMS_ITS ---
Author Organization Rogelio Address [address] [facility] [address] [id number] Care Team Providers Care Cotton Bag Sewer Name Role Phone Tonya Levin Primary Care Provider [phone] Brandon Alfaro Unavailable [phone] Allergies Allergen (clinical drug ingredient) Drug/Non Drug [...] Provider Diagnosis [facility] [address] [facility] [address] [phone] 11/03/2024 Brandon Alfaro Acute pain of right [...] via phone to repo rt progress, Reason: Provider Name:Brandon Mcguire ry, 05/03/2025 11:00:00 AM, [address], [address], [place], [place], [id number], Progress Notes * RITA QIUDOB: 0 (34 yo F)Acc No.[id number]:11/03/2024 Progress Notes Patient: RITA JEREZ Provider: Brice Alfaro M.D. :1990 A ge:33 Y S ex:Female Date:11/03/2024 Address:[address] [facility] [address], [facility], [id number] Pcp:Tonya Levin Subjective: * Chief Complaints: * [...] * Images: Billing Information: * Visit Code: 33991 Office Visit, Est Pt., Level 3. * Procedure Codes: * Electronic signature of Kelley Alfaro MD on 05/03/2025 at 11:35 AM EDT Sign off status: Pending * Provider: Brice Alfaro M.D. Date: 11/03/2024 Generated for Tevin nguyen/Adeel/Mimiitting on: 0 05/03/2025 11:35 AM EDT History and Physical Notes * [...]
--- OUTSIDE RECORDS SUMMARY | 2024-12-28 09:30 | XMS_ITS ---
Author Organization [facility] Address [address] [id number] Care Team Providers Care [employer] Reading Teacher Name Role Phone Tonya Levin Primary Care Provider Meenakshi Jaycee Unavailable [phone] Allergies Allergen (clinical drug ingredient) Drug/Non Drug Allergy documented on EMR Reaction Allergy Type Onset Date Status promethazine Phenergan stomach upset Drug Allergy Active Results Component Value Reference Range Notes Influenza Screen (in house) Reviewed date:12/28/2024 09:41:10 PM Interpretation:neg Performing Lab: Notes/Report: neg results neg CBC Fingerstick (in house) Reviewed date:12/28/2024 09:40:56 PM Interpretation: Performing Lab: Notes/Report: wbc 7.1 3.5 - 10 lym 21.1 15 - 50 mid 4.7 2 - 15 gran 74.2 35 - 80 rbc 4.85 3.5 - 5.5 hgb 14.0 11.5 - 16.5 hct 41.3 35 - 55 mcv 85.1 75 - 100 mch 29.0 25 - 35 mchc 34.0 31 - 38 plat 217 100 - 400 REASON FOR VISIT congestion Medications Medication SIG (Take, Route, Frequency, Duration) Notes Start Date End Date Status Meloxicam 15 MG Take 1 tablet by once daily; Duration: 30 Not-Taking Cyclobenzaprine HCl 5 MG 1 tablet as nee ded Orally Three times a day 11/03/2024 Not-Taking Vital Signs Blood pressure systolic 120 mm Hg 12/29/19 25 Blood pressure diastolic 80 mm Hg 03/10/2 025 Heart Rate 101 /min 12/28/2024 Height 60 in 12/28/2024 Weight 197.2 lbs 12/28/2024 BMI 38.51 kg/m2 12/28/2024 Encounters Encounter Location Date Provider Diagnosis [facility] [address] [place] [address] [address] [place], [place] [id number] 12/28/2024 Jaycee Arrieta URI (upper respirato ry infection) J06.9 Assessments Encounter Date Diagnosis (ICD Code) Assessment Notes Treatment Notes Treatment Clinical Notes Section Notes 12/28/2024 URI (upper respiratory infection) (ICD-10 - J06.9) fluids, rest, supportive measures for fever/symptom relief, OTC decongestant and/or cough medicine of choice Plan Of Treatment Treatment Notes Assessment Notes URI (upper respiratory infection) fluids , rest, supportive measures for fever/symptom relief, OTC decongestant and/or cough medicine of choice Next Appt Details Follow Up: prn, Reason: Provider Name:Brandon larios, 05/03/2025 11:00:00 AM, [address], [address], [place], [place], [id number], Progress Notes * NOEMY QIUROSADOB: 0 (34 yo F)Acc No.[id number]:12/28/2024 Progress Notes Patient: RITA JEREZ Provider: GHAZAL Boyer :1990 A ge:34 Y S ex:Female Date:12/28/2024 Address:[address] [place] [address], [place], [id number] Pcp:Tonya Levin Subjective: * Chief Complaints: * 1 . Congestion. * HPI: E NT/respiratory: 34 year old female presents with c/o sore throat. c/o cough. c/o nasal congestion. c/o rhinorrhea. c/o post nasal drainage. c/o headache. c/o chest congestion. Denies : Fever. D enies : ear pain P t sts her ears feels itchy. D enies : smoking. D enies : body aches. Pt sts that her symptoms started Saturday night; eating and drinking OK. * ROS: D ERMATOLOGY: no R nancy. [...] detector use: yes. Alcohol: No. * Medications: N ot-Taking Cyclobenzaprine HCl 5 MG Tablet 1 tablet as needed Orally Three times a day , Not-Taking Meloxicam 15 MG Tablet Take 1 tablet by mouth once daily , Medication List reviewed and reconciled with the patient * Allergies: P henergan: stomach upset. Objective: * Vitals: W t:197.2, Temp:97.6, BP:120/80, HR:101, O2 Sat:99% on RA, Nurse:vernon, Ht: 60, BMI:38.51. * Examination: E NT/Respiratory: General Appearance: well nourished and hydrated, NAD, alert, active. E yes: sclera and conjunctiva clear. E ars: auditory canals normal bilaterally, tympanic membranes normal bilaterally. N ose : nares patent. O ral cavity : no erythema or exudate seen on pharynx. N fanta : supple, no cervical lymphadenopathy. H eart : RRR. L ungs: CTAB A&P. Assessment: * Assessment: 1. U RI (upper respiratory infection) - J06.9 (Primary) Plan: * Treatment: * Labs: * L ab: CBC Fingerstick (in house) (Collection Date & Time - 12/28/2024) Value Reference Range w bc 7.1 3.5 - 10 * l ym 21.1 15 - 50 * m id 4.7 2 - 15 * g ran 74.2 35 - 80 * r bc 4.85 3.5 - 5.5 * h gb 14.0 11.5 - 16.5 * h ct 41.3 35 - 55 * m cv 85.1 75 - 100 * m ch 29.0 25 - 35 * m chc 34.0 31 - 38 * p lat 217 100 - 400 * Houg,Emi 12/28/2024 1:13: 57 PM > Provider reviewed results while patient in office.Jaycee Arrieta 12/28/2024 9:40:56 PM > ?Lab: Influenza Screen (in house) (Collection Date & Time - 12/28/2024)?neg * Value Reference Range r esults neg * Emi Lerma 12/28/2024 1:38: 26 PM > Provider reviewed results while patient in office.Jaycee Arrieta 12/28/2024 9:41:10 PM > * Procedure Codes: [address] [place], [address] CAPILLARY BLOOD DRAW, 87929 CBC WITH AUTO DIFF, 36384 Flu Test- Nasal Swab, Modifiers: QW , 3074F SYST BP LT 130 MM HG, 3079F DIAST BP 80-89 MM HG * Follow Up: p rn * Images: Billing Information: * Visit Code: 89846 Office Visit, Est Pt., Level 3. * Procedure Codes: [address] [place] [address] CAPILLARY BLOOD DRAW. 78310 CBC WITH AUTO DIFF. 04798 Flu Test- Nasal Swab. Modifiers: QW 3074F SYST BP LT 130 MM HG. 3079F DIAST BP 80-89 MM HG. * Electronic signature of Loren Arrieta APRN on 05/03/2025 at 11:35 AM EDT Sign off status: Pending * Provider: GHAZAL Boyer Date: 12/28/2024 Generated for Tevin nguyen/Adeel/eTrosiitting on: 0 05/03/2025 11:35 AM EDT History and Physical Notes * HPI (History of Present Illness) Category Sub-Category Detail Notes Category Not es ENT/respiratory sore throat Pt sts that her symptoms started Saturday night; eating and drinking OK ear pain Pt sts her ears feel s itchy cough Fever post nasal drainage headache chest congestion rhinorrhea nasal congestion smoking body aches Examination Category Sub-Category Detail Notes Category Not es ENT/Respiratory Oral cavity : no erythema or exudate s een on pharynx Ears: auditory canals norm al bilaterally, tympanic membranes normal bilaterally Neck : supple, no cervical lymphadenopathy Heart : RRR Lungs: CTAB A&P General Appearance: well nourished and h ydrated, NAD, alert, active Nose : nares patent Eyes: sclera and conjuncti va clear
--- OUTSIDE RECORDS SUMMARY | 2025-01-23 17:30 | XMS_ITS ---
Author Organization [facility] Address [address] [place] [address] Care Team Providers Care Survey Coordinator Name Role Phone Ivan Jeff Primary Care Provider [phone] IVAN Jeff APRN Unavailable Unavailable Migration, Provider Unavailable Unavailable Allergies Allergen (clinical drug ingredient) Drug/Non Drug Allergy documented on EMR Reaction Allergy Type Onset Date Status promethazine Phenergan vomiting Drug Allergy Acti ve REASON FOR VISIT Multum To [facility] Conversion Encounter Medications Medication SIG (Take, Route, Frequency, Duration) Notes Start Date End Date Status Pseudoephedrine HCl ER 120 MG 1 tab(s) o rally every 12 hours; Duration: 14 days 12/09/2023 Active Encounters Encounter Location Date Provider Diagnosis [facility] [address] [place] [address] 01/23/2025 Provider Migration Viral URI with cough J06.9 Assessments Encounter Date Diagnosis (ICD Code) Assessment Notes Treatment Notes Treatment Clinical Notes Section Notes 01/23/2025 Viral URI with cough (ICD-10 - J06.9) Plan Of Treatment Medication Medication Name Sig Start Date Stop Date Notes Pseudoephedrine HCl ER 120 MG 1 tab(s) o rally every 12 hours; Duration: 14 days 12/09/2023 Progress Notes * Estela QIUDOB: 0 (34 yo F)Acc No.[id number]:01/23/2025 Patient: Estela JEREZ Provider: Gian Starr :1990 A ge:34 Y S ex:Female Date:01/23/2025 Address:[address] [place] [address] [id number] Pcp:Ivan Jeff Subjective: * Chief Complaints: * 1 . Multum To [facility] Conversion Encounter. * Medical History: * Allergies: Gian chao: vomiting - Allergy. Objective: * Vitals: Assessment: * Assessment: 1. V iral URI with cough - J06.9 (Primary) Plan: * Treatment: * * Electronic signature of Prov ider Migration on 05/03/2025 at 11:36 AM EDT Sign off status: Pending * Provider: Gian Starr Date: 01/23/2025 Generated for Tevin nguyen/Adeel/eTransmitting on: 05/03/2025 11:36 AM EDT
--- OUTSIDE RECORDS SUMMARY | 2025-05-03 11:36 | XMS_ITS | Data Portability ---
Author Organization [facility] [facility] Address [address] [facility] [place] [address] Assessment No assessment recorded. Plan of Treatment Reminders Order Date Submit Date Provider Last Modified By Organization Details Last Modified Time Details Appointments None record ed. Lab None record ed. Referral None record ed. Procedures None record ed. Surgeries None record ed. Imaging None record ed. Medication Orders None record ed. Patient TargetsNo targets recorded. Patient Instructions Encounter Date Encounter Id Patient Instructions Last Modified By Organization Details Last Modified Time 07/17/2019 [id number] Risks/Benefits/O p tions/Side Effects of diagnosis and treatment discussed. UV protection and signs of skin cancer discussed mpircher Not available 07/17/2019 11:13:11 Reason for Referral None Reported. Medical Equipment None Reported. Allergies No known drug allergies Medications Not known to be on any medication Vitals None Recorded Social History None recorded. Functional Status None recorded. Mental Status None recorded. Family History Nothing Reported. Medical History No medical history recorded. Gynecological HistoryNo gynecological history recorded. Obstetrics History GPAL:G 0 P 0 0 0 0 Past Encounters Encounter ID Performer Location Encounter Start Date Encounter Closed Date Diagnosis/Indication Diagnosis SNOMED-CT Code Diagnosis ICD10 Code Diagnosis Note [id number] DAVIE FRANCES PA-C [facility] [address] [place] [address] 07/17/2019 11:00:14 07/17/2019 12:48:51 Lent[place] 057107254 L81.4 APPEARANCE OF LENTIGO TODAY UNSURE OF PREVIOUS INFLAMMATO RY PROCESS GOING ON THAT PT IS DESCRIBING DISCUSSED CRYO; PT DECLINED NO TREATMENT NEEDED TODAY ADVISED PT TO RTC IF LESION BEGINS FLARING AGAIN FOR RE-EVALUAT ION/TREATM ENT Health Concerns Section Related Observation LastModified by Organization Detai ls LastModified Time None Recorded Concern Status LastModified by Organization Details LastModified Time None Recorded Advance Directives Directive None Recorded Payers Insurance Date Sequence Insurance Name Policy Number Policy Shaffer Covered Member ID Shaffer Member ID Guarantor Name 08/14/2019 Tania BENNETT [id number] Estela Lopez [id number] Estela Lopez Notes Date Note Type Note Provider Name and Address Organization Details Recorded Time 07/17/2019 text/html NEW PATIENT 1) PT C/O LESION ON LEFT ZYGOMA X YEARS, INFLAMED X 2 MONTHS (+)ITCH (-)BLEED/PAIN. PT STATES A BROWN LESION/ SUN SPOT WAS PRESENT X YEARS BUT SUDDENLY AREA BECAME VERY RED, CRUSTY, RAISED, SCABBED OVER AND ITCHED A LOT. SHE STATES LESION RECENTLY HAS GOTTEN MUCH BETTER AND SEEMS TO BE RESOLVING ON ITS OWN. NO TX PT DECLINED FSE Denies any other new, changing, or bleeding lesions, or other rashes, feels well, in a good mood, and has no family history of melanoma. DAVIE FRANCES PA-C [address] [place], [address], [facility] 07/17/2019 12:15:19 OBGyn Episode No OBEpisode recorded.
--- OUTSIDE RECORDS SUMMARY | 2025-05-03 11:36 | XMS_ITS | Patient Health Record ---
Author Organization [facility] Address [address] [facility] [address] [facility] [address] [place] [address] Care Team Providers Care Electro Optical Engineer Name Role Phone Ivan Jeff Primary Care Provider IVAN Jeff APRN Unavailable Unavailable Migration, Provider Unavailable Unavailable Allergies Allergen (clinical drug ingredient) Drug/Non Drug Allergy documented on EMR Reaction Allergy Type Onset Date Status promethazine Phenergan vomiting Drug Allergy Acti ve Reason For Referral No Information Medications Medication SIG (Take, Route, Frequency, Duration) Notes Start Date End Date Status Pseudoephedrine HCl ER 120 MG 1 tab(s) o rally every 12 hours; Duration: 14 days 12/09/2023 Active Social History Tobacco Use: Social History Observation Description Date Details (start date - stop date) Never Smoker NA - NA Smoking: Question Answer Notes Are you a: nonsmoker Encounters Encounter Location Date Provider Diagnosis [facility] [address] [facility] 36 [facility] [address] [place] [phone] 01/23/2025 Provider Migration Viral URI with cough J06.9 Assessments Encounter Date Diagnosis (ICD Code) Assessment Notes Treatment Notes Treatment Clinical Notes Section Notes 01/23/2025 Viral URI with cough (ICD-10 - J06.9) Plan Of Treatment No Information Insurance Providers Payer Name Payer Address Payer Phone Subscriber Number Group Number Insured Name Patient Relationship to Insured Coverage Start Date Coverage End Date [employer] [address] [place], [place] [phone] [id number] Estela Lopez Self - patient is the insured Medications Administered Medication Instructions Date of Administration Dosage Notes Dexamethasone 4mg Injection 11/01/2022 4 mg Medical (General) History Hospitalization History Reason Date(Month/Year) Childbirth
== END 2025-05-03 23:59 | disposition home or self-care (01) ==
LOC: LAB 11:32
PROVIDERS: PCP Family Medicine; Visit Provider Family Medicine
DX: R12 Heartburn (principal)
CPT/HCPCS: 83013

== ENCOUNTER 2025-07-08 09:30 | Outpatient (CLI) | payer OTHER, SELFPAY ==
--- OUTSIDE RECORDS SUMMARY | 2024-06-24 07:00 | XMS_ITS ---
Author Organization [facility] Address [address] [place] [phone] Care Team Providers Care Pewter Fabricator Name Role Phone Tonya Levin Primary Care Provider BrennanChristina wyman Unavailable [phone] Allergies Allergen (clinical drug ingredient) Drug/Non Drug [...] a day, prn 06/24/2024 Active Vital Signs Weight 186.8 lbs 06/24/2024 Blood pressure systolic 120 mm Hg 06/24/20 24 Blood pressure diastolic 80 mm Hg 024 Heart Rate 94 /min 06/24/2024 Height 60 in 06/24/2024 BMI 36.48 kg/m2 06/24/2024 Encounters Encounter Location Date Provider Diagnosis [facility] [address] [facility] [address] [facility] [address] [place] [phone] 06/24/2024 Christina Hernandez Acute URI J06.9 Assessments [...] * RITA QIUDOB: 0 (34 yo F)Acc No.[id number]:06/24/2024 Progress Notes Patient: RITA JEREZ Provider: DWAYNE Barfield :1990 A ge:33 Y S ex:Female Date:06/24/2024 Address:[address] [place] [address] E, [place], [id number] Pcp:Tonya Levin Subjective: * Chief Complaints: * [...] STREP A ASSAY W/OPTIC, Modifiers: QW , 58732 COVID TEST IN HOUSE, Modifiers: QW , 53276 CAPILLARY BLOOD DRAW, 56078 CBC WITH AUTO DIFF * Follow Up: p rn * Images: Billing Information: * Visit Code: 61612 Office Visit, Est Pt., Level 3. * Procedure Codes: 67137 STREP A ASSAY W/OPTIC. Modifiers: QW 62937 COVID TEST IN HOUSE. Modifiers: QW 83470 CAPILLARY BLOOD DRAW. 43520 CBC WITH AUTO DIFF. * Electronic signature of DWAYNE Rosenberg on 07/08/2025 at 09:34 AM EDT Sign off status: Pending * Provider: DWAYNE Barfield Date: 0 06/24/2024 Generated for Tevin ng/Fajaeg/eTransmitting on: 0 07/08/2025 09:34 AM EDT History and Physical Notes * HPI [...]
--- OUTSIDE RECORDS SUMMARY | 2024-11-03 05:15 | XMS_ITS ---
Author Organization Rogelio Address [address] [facility] [address] [id number] Care Team Providers Care Rod Bending Machine Operator Name Role Phone Tonya Levin Primary Care Provider Brandon Alfaro Unavailable [phone] Allergies Allergen (clinical drug ingredient) Drug/Non Drug [...] Provider Diagnosis [facility] [address] [facility] [address] [phone] 11/03/2024 Brandon Alfaro Acute pain of right [...] * RITA QIUDOB: 0 (34 yo F)Acc No.[id number]:11/03/2024 Progress Notes Patient: RITA JEREZ Provider: Brice Alfaro M.D. :1990 A ge:33 Y S ex:Female Date:11/03/2024 Address:[address] [place] [address], [facility], [id number] Pcp:Tonya Levin Subjective: * Chief Complaints: * [...] * Images: Billing Information: * Visit Code: 39864 Office Visit, Est Pt., Level 3. * Procedure Codes: * Electronic signature of Kelley Alfaro MD on 07/08/2025 at 09:33 AM EDT Sign off status: Pending * Provider: Brice Alfaro M.D. Date: 0 11/03/2024 Generated for Tevin nguyen/Adeel/Mimiitting on: 0 07/08/2025 09:33 AM EDT History and Physical Notes * [...]
--- OUTSIDE RECORDS SUMMARY | 2024-12-28 09:30 | XMS_ITS ---
Author Organization [facility] Address [address] [phone] Care Team Providers Care Biological Photographer Name Role Phone Tonya Levin Primary Care Provider Meenakshi Jaycee Unavailable [phone] Allergies Allergen (clinical drug ingredient) Drug/Non Drug [...] Encounter Location Date Provider Diagnosis [facility] [address] [facility] [address] [facility] [address] [phone] 12/28/2024 Jaycee Arrieta URI (upper respirato ry [...] * RITA QIUDOB: 0 (34 yo F)Acc No.[id number]:12/28/2024 Progress Notes Patient: RITA JEREZ Provider: GHAZAL Boyer :1990 A ge:34 Y S ex:Female Date:12/28/2024 Address:[address] [place] [address] [place], [place], [id number] Pcp:Tonya Levin Subjective: * Chief Complaints: * [...] p lat 217 100 - 400 * Emi Lerma 12/28/2024 1:13: 57 PM > Provider reviewed results while patient in office.Jaycee Arrieta 12/28/2024 9:40:56 PM > ?Lab: Influenza Screen (in house) (Collection Date & Time - 12/28/2024)?neg * Value Reference Range r esults neg * Emi Lerma 12/28/2024 1:38: 26 PM > Provider reviewed results while patient in office.Jaycee Arrieta 12/28/2024 9:41:10 PM > * Procedure Codes: [address] [place], [address] CAPILLARY BLOOD DRAW, 62728 CBC WITH AUTO DIFF, 71653 Flu Test- Nasal Swab, Modifiers: QW , 3074F SYST BP LT 130 MM HG, 3079F DIAST BP 80-89 MM HG * Follow Up: p rn * Images: Billing Information: * Visit Code: 41765 Office Visit, Est Pt., Level 3. * Procedure Codes: [address] [place]. [address] CAPILLARY BLOOD DRAW. 64916 CBC WITH AUTO DIFF. 66511 Flu Test- Nasal Swab. Modifiers: QW 3074F SYST BP LT 130 MM HG. 3079F DIAST BP 80-89 MM HG. * Electronic signature of Loren kayalejandro Arrieta APRN on 07/08/2025 at 09:33 AM EDT Sign off status: Pending * Provider: GHAZAL Boyer Date: 0 12/28/2024 Generated for Tevin nguyen/Adeel/eTrosiitting on: 0 07/08/2025 09:33 AM EDT History [...]
--- OUTSIDE RECORDS SUMMARY | 2025-01-23 17:30 | XMS_ITS ---
Author Organization [facility] Address [address] [place] [address] Care Team Providers Care Lap Layer Name Role Phone Ivan Jeff Primary Care Provider [phone] IVAN Jeff APRN Unavailable Unavailable Migration, Provider Unavailable Unavailable Allergies Allergen (clinical drug ingredient) Drug/Non Drug Allergy documented on EMR Reaction Allergy Type Onset Date Status promethazine Phenergan vomiting Drug Allergy Acti ve REASON FOR VISIT Multum To [facility] Conversion Encounter Medications Medication SIG (Take, Route, Frequency, Duration) Notes Start Date End Date Status Pseudoephedrine HCl ER 120 MG 1 tab(s) o rally every 12 hours; Duration: 14 days 12/09/2023 Active Encounters Encounter Location Date Provider Diagnosis [facility]ED [facility] [address] [place] [address] 01/23/2025 Provider Migration Viral URI with cough [...] * Estela QIUDOB: 0 (34 yo F)Acc No.[id number]:01/23/2025 Patient: Estela JEREZ Provider: Gian Starr :1990 A ge:34 Y S ex:Female Date:01/23/2025 Address:[address] [place] [address] [address] [id number] Pcp:Ivan Jeff Subjective: * Chief Complaints: * 1 . Multum To Medispan Conversion Encounter. * Medical History: * Allergies: Gian chao: vomiting - Allergy. Objective: * Vitals: Assessment: * Assessment: 1. V iral URI with cough - J06.9 (Primary) Plan: * Treatment: * * Electronic signature of Prov ider Migration on 07/08/2025 at 09:33 AM EDT Sign off status: Pending * Provider: Gian Starr Date: 01/23/2025 Generated for Tevin nguyen/Adeel/eTransmitting on: 07/08/2025 09:33 AM EDT
--- OUTSIDE RECORDS SUMMARY | 2025-05-03 07:00 | XMS_ITS ---
Author Organization [facility] Address [address] [place] [id number] Care Team Providers Care Tire Balancer Name Role Phone Tonya Levin Primary Care Provider Brandon Alfaro [phone] Allergies Allergen (clinical drug ingredient) Drug/Non Drug Allergy documented on EMR Reaction Allergy Type Onset Date Status promethazine Phenergan stomach upset Drug Allergy Active Results Component Value Reference Range Notes H-Urea Breath Test Reviewed date:05/11/2025 11:49:51 AM Interpretation:Negative Performing Lab: Notes/Report: Patient Height (inches): 61.00 Patient Weight (pounds): 193 HPYBREATHR Negative Negative Performed at: [facility] [address] [id number] Laundry Pricing Clerk: Stevie Lawton PhD, Phone: [phone] REASON FOR VISIT indigestion Medications Medication SIG (Take, Route, Fr equency, Duration) Notes Start Date End Date Status Famotidine 20 MG 1 tablet Orally twic e a day; Duration: 30 days 05/03/2025 Active Vital Signs Weight 193 lbs 05/03/2025 Blood pressure systolic 122 mm Hg 05/03/20 25 Blood pressure diastolic 78 mm Hg 025 Heart Rate 96 /min 05/03/2025 Height 60 in 05/03/2025 BMI 37.69 kg/m2 05/03/2025 Encounters Encounter Location Date Provider Diagnosis [facility] [address] [place] [phone] 05/03/2025 Brandon Alfaro Heartburn R12 Assessments Encounter [...] * RITA QIUDOB: 0 (34 yo F)Acc No.[id number]:05/03/2025 Progress Notes Patient: RITA JEREZ Provider: Brice Alfaro M.D. :1990 A ge:34 Y S ex:Female Date:05/03/2025 Address:[address] [place] [address], [facility], [id number] Pcp:Tonya Levin Subjective: * Chief Complaints: * [...] times a day, as needed , Discontinued Zjpdptqsb-Jrzbzcij-LZ 30-1-20 MG/5ML Liquid 5 mL as needed [...] * Images: Billing Information: * Visit Code: 87932 Office Visit, Est Pt., Level 3. * Procedure Codes: 1036F TOBACCO NON-USER. 3074F SYST BP LT 130 MM HG. 3078F DIAST BP < 80 MM HG. * Electronic signature of Kelley Alfaro MD on 07/08/2025 at 09:34 AM EDT Sign off status: Pending * Provider: Brice Alfaro M.D. Date: 05/03/2025 Generated for Tevin nguyen/Adeel/Germaine on: 07/08/2025 09:34 AM EDT History and Physical [...]
--- OUTSIDE RECORDS SUMMARY | 2025-06-30 10:00 | XMS_ITS ---
Author Organization [facility] Address [address] [place] [phone] Care Team Providers Care Copy Cutter Name Role Phone Tonya Levin Primary Care Provider Brandon Alfaro Unavailable [phone] Allergies Allergen (clinical drug ingredient) Drug/Non Drug Allergy documented on EMR Reaction Allergy Type Onset Date Status promethazine Phenergan stomach upset Drug Allergy Active Results Component Value Reference Range Notes CBC Venipuncture (in house) Reviewed date:07/01/2025 11:33:47 AM Interpretation:Normal Performing Lab: Notes/Report: Normal wbc 6.4 3.5 - 10 lymph 32.5% 15 - 50 mid 7.2% 2 - 15 gran 60.3% 35 - 80 rbc 4.74 3.5 - 5.5 hgb 13.9 11.5 - 16.5 hct 40.2 35 - 55 mcv 84.8 75 - 100 mch 29.4 25 - 35 mchc 34.7 31 - 38 platlet 312 100 - 400 P-Amylase Reviewed date:07/01/2025 11:33:47 AM Interpretation:Normal Performing Lab: Notes/Report: Test performed by [facility] [address] [place], [place] [address] , [address], [place] [address] Martinez Jane MD, Moving Worker CLIA: [id number] Amylase 36 28-100 U/L P-Comprehensive Metabolic Pa luz (CMP) Reviewed date:07/01/2025 11:33:47 AM Interpretation:ALT 50 Performing Lab: Notes/Report: Test performed by [facility] [address] [place] [address] , [address], [place] [address] Martinez Jane MD, Moving Worker CLIA: [id number] Sodium 140 135-145 mmol/L Potassium 3.9 3.5-5.3 mmol/L Chloride 103 97-108 mmol/L CO2 27 20-32 mmol/L Glucose 98 65-99 mg/dL BUN 8 6-20 mg/dL Creatinine 0.58 0.50-1.00 mg/dL Calcium 9.6 8.6-10.4 mg/dL eGFR by Creatinine 121 >59 mL/min/1.73m2 Protein 7.1 6.0-8.3 g/dL Albumin 4.5 3.5-5.3 g/dL Alkaline Phosphatase 105 35-121 IU/L ALT (SGPT) 50 <5-47 IU/L AST (SGOT) 33 <5-40 IU/L Bilirubin, Total 0.3 <0.2-1.2 mg/dL A/G Ratio 1.7 1.1-2.5 P-Lipid Panel Reviewed date:07/01/2025 11:33:47 AM Interpretation:Normal Performing Lab: Notes/Report: Test performed by [facility] [address] [place] [address] , [address], [place] [address] Martinez Jane MD, Moving Worker CLIA: [id number] Cholesterol 175 <200 mg/dL Triglycerides 55 <150 mg/dL HDL Cholesterol 49 >39 mg/dL Cholesterol / HDL Ratio 3.57 0.00-4.44 Ratio Non-HDL Cholesterol 126 <130 mg/dL LDL Cholesterol (Calculation) 115 <130 mg/dL LDL Cholesterol Levels* Less than 100 mg/dL Optimal 100 to 129 mg/dL Near Optimal/ Above Optimal 130 to 159 mg/dL Borderline High 160 to 189 mg/dL High 190 mg/dL and above Very High * Categories as recommended by the 2004 ATPIII guidelines LDL/HDL Ratio 2.3 <3.3 Ratio LDL Cholesterol Patient History Test Date: 06/30/2025 LDL Results: 115 Units: mg/dL % Change: - REASON FOR VISIT POSS. Gallbladder issues Medications Medication SIG (Take, Route, Fr equency, Duration) Notes Start Date End Date Status Famotidine 20 MG Take 1 tablet by mouth twice daily Active Vital Signs Weight 196.8 lbs 06/30/2025 Blood pressure systolic 114 mm Hg 06/30/20 25 Blood pressure diastolic 78 mm Hg 025 Heart Rate 97 /min 06/30/2025 Height 60 in 06/30/2025 BMI 38.43 kg/m2 06/30/2025 Encounters Encounter Location Date Provider Diagnosis [facility] [address] [facility] [address], [place] [phone] 06/30/2025 Brandon Alfaro Epigastric abdominal pain R10.13 and Heartburn R12 Assessments Encounter Date Diagnosis (ICD Code) Assessment Notes Treatment Notes Treatment Clinical Notes Section Notes 06/30/2025 Epigastric abdominal pain (ICD-10 - R10.13) 06/30/2025 Heartburn (ICD-10 - R12) Plan Of Treatment Medication Medication Name Sig Start Date Stop Date Notes Famotidine 20 MG Take 1 tablet by mouth twice daily Pending Test Test Name Order Date Ultrasound : Abdomen limited 06/30/2025 Next Appt Details Follow Up: via phone to repo rt test results, Reason: Progress Notes * RITA QIUDOB: 0 (34 yo F)Acc No.[id number]:06/30/2025 Progress Notes Patient: RITA JEREZ Provider: Brice Alfaro M.D. :1990 A ge:34 Y S ex:Female Date:06/30/2025 Address:[place], [id number] Pcp:Tonya Levin Subjective: * Chief Complaints: * 1 . POSS. Gallbladder issues. * HPI: G astroenterology: 34 year old female presents with c/o Abdominal Pain P t complains of ongoing upper abdominal pain since 05/03 visit. Pt started on Famotidine and states that she has not noticed any improvement in pain. Pt states after eating she feels like she has an air bubble under ribs that radiates to midback. * ROS: C ARDIOLOGY: no D izziness. n o C hest pain. D ERMATOLOGY: no R nancy. n o H earle. U ROLOGY: no D ifficulty urinating. n [...] detector use: yes. Alcohol: No. * Medications: T aking Famotidine 20 MG Tablet Take 1 tablet by mouth twice daily , Medication List reviewed and reconciled with the patient * Allergies: P henergan: stomach upset. Objective: * Vitals: W t: 196.8, Temp: 97.9, BP: 114/78, HR: 97, Nurse: SF, Ht: 60, BMI:38.43. * Examination: G astroenterology: General Appearance: p leasant, NAD. O ral cavity: n ormal. S clera: a nicteric. H eart sounds: r egular, normal S1 S2. L ungs: c lear, no rales or wheezes. A bdomen: B S present, soft, nontender, no guarding or rigidity, no masses felt. Assessment: * Assessment: 1. E pigastric abdominal pain - R10.13 (Primary) 2 . H eartburn - R12 ? Plan: * Treatment: Value Reference Range A mylase 36 28-100 - U/L * Vilma Natarajan 07/01/2025 11: 33:40 AM EDT > See phone encounter ?LAB: P-Comprehensive Metabolic Panel (CMP) (Collection Date & Time - 06/30/2025 01:30 PM)?ALT 50* Value Reference Range A /G Ratio 1.7 1.1-2.5 - * A lbumin 4.5 3.5-5.3 - g/dL * A lkaline Phosphatase 105 35-121 - IU/L * A LT (SGPT) 50 H <5-47 - IU/L * A ST (SGOT) 33 <5-40 - IU/L * B ilirubin, Total 0.3 <0.2-1.2 - mg/dL * B UN 8 6-20 - mg/dL * C alcium 9.6 8.6-10.4 - mg/dL * C hloride 103 97-108 - mmol/L * C O2 27 20-32 - mmol/L * C reatinine 0.58 0.50-1.00 - mg/dL * G lucose 98 65-99 - mg/dL * P otassium 3.9 3.5-5.3 - mmol/L * S odium 140 135-145 - mmol/L * P rotein 7.1 6.0-8.3 - g/dL * e GFR by Creatinine 121 >59 - mL/min/1.73m2 * Vilma Natarajan 07/01/2025 11: 33:40 AM EDT > See phone encounter ?LAB: P-Lipid Panel (Collection Date & Time - 06/30/2025 01:30 PM)?Normal* Value Reference Range C holesterol / HDL Ratio 3.57 0.00-4.44 - Ratio * C holesterol 175 <200 - mg/dL * H DL Cholesterol 49 >39 - mg/dL * L DL Cholesterol (Calculation) 115 <130 - mg/d L * L DL/HDL Ratio 2.3 <3.3 - Ratio * N on-HDL Cholesterol 126 <130 - mg/dL * T riglycerides 55 <150 - mg/dL * Vilma Natarajan 07/01/2025 11: 33:40 AM EDT > See phone encounter ?LAB: CBC Venipuncture (in house) (Collection Date & Time - 06/30/2025)? Normal* Value Reference Range w bc 6.4 3.5 - 10 * l ymph 32.5% 15 - 50 * m id 7.2% 2 - 15 * g ran 60.3% 35 - 80 * r bc 4.74 3.5 - 5.5 * h gb 13.9 11.5 - 16.5 * h ct 40.2 35 - 55 * m cv 84.8 75 - 100 * m ch 29.4 25 - 35 * m chc 34.7 31 - 38 * p latlet 312 100 - 400 * Roxanne Fox 06/30/2025 02:37: 05 PM EDT > Vilma Natarajan 07/01/2025 11:33:40 AM EDT > See phone encounter ?Imaging: Ultrasound : Abdomen limited* Emelia Pompa 07/01/2025 11:4 0:47 AM EDT > no auth required; CPT code 40143; faxed to [facility] Scheduling 2.?Heartburn? Continue Famotidine Tablet, 20 MG, Take 1 tablet by mouth twice daily.?? * Procedure Codes: 8 5025 CBC WITH AUTO DIFF * Follow Up: v ia phone to report test results * Images: Billing Information: * Visit Code: 19341 Office Visit, Est Pt., Level 4. * Procedure Codes: 06236 CBC WITH AUTO DIFF. * Electronic signature of Kelley Alfaro MD on 07/08/2025 at 09:34 AM EDT Sign off status: Pending * Provider: Brice Alfaro M.D. Date: 0 06/30/2025 Generated for Tevin nguyen/Adeel/Germaine on: 0 07/08/2025 09:34 AM EDT History and Physical Notes * HPI (History of Present Illness) Category Sub-Category Detail Notes Category Not es Gastroenterology Abdominal Pain Pt complains of ongoing upper abdominal pain since 05/03 visit. Pt started on Famotidine and states that she has not noticed any improvement in pain. Pt states after eating she feels like she has an air bubble under ribs that radiates to midback Examination Category Sub-Category Detail Notes Category Not es Gastroenterology Oral cavity: normal Sclera: anicteric Heart sounds: regular, normal S1 S 2 Lungs: clear, no rales or w heezes Abdomen: BS present, soft, no ntender, no guarding or rigidity, no masses felt General Appearance: pleasant, NAD
--- NOTE | 2025-07-08 09:34 | US_ITS ---
FINAL REPORT TECHNIQUE: Multiple transverse and longitudinal images CLINICAL HISTORY: EPIGASTERIC PAIN FINDINGS: There is a stone filled gallbladder. No gallbladder wall thickening is noted. No biliary ductal dilatation is appreciated. No fluid collections are seen. Limited portions of the right liver are unremarkable. Limited portions of the right kidney are unremarkable. Pancreas is largely obscured. IMPRESSION: Cholelithiasis without biliary obstruction. Reviewed, Interpreted and Dictated by Gabrielle Camarena MD Transcribed by Darshana Schmidt Authenticated and [facility]
--- OUTSIDE RECORDS SUMMARY | 2025-07-08 09:34 | XMS_ITS | Patient Health Record ---
Author Organization [facility] Address [address] [facility] [address] [place] Khan [id number] Care Team Providers Care Slot Editor Name Role Phone Tonya Levin Primary Care Provider [phone] Brandon Alfaro Unavailable [phone] Meka Arrietaine Unavailable [phone] Allergies Allergen (clinical drug ingredient) Drug/Non Drug [...] - 38 plat 217 100 - 400 P-Lipid Panel Reviewed date:07/01/2025 11:33:47 AM Interpretation:Normal Performing Lab: Notes/Report: Test performed by [facility] [address] [place] [address] , [address], [place] [address] Martinez Jane MD, Laboratory Inspector CLIA: [id number] Cholesterol 175 <200 mg/dL Triglycerides 55 <150 [...] Results: 115 Units: mg/dL % Change: - P-Comprehensive Metabolic Pa luz (CMP) Reviewed date:07/01/2025 11:33:47 AM Interpretation:ALT 50 Performing Lab: Notes/Report: Test performed by [facility] , [address], [place] [address] Martinez Jane MD, Laboratory Inspector CLIA: [id number] Sodium 140 135-145 mmol/L Potassium 3.9 3.5-5.3 [...] 0.3 <0.2-1.2 mg/dL A/G Ratio 1.7 1.1-2.5 P-Amylase Reviewed date:07/01/2025 11:33:47 AM Interpretation:Normal Performing Lab: Notes/Report: Test performed by [facility], [address] , [address], [place] [address] Martinez Jane MD, Laboratory Inspector CLIA: [id number] Amylase 36 28-100 U/L CBC Venipuncture (in house) Reviewed date:07/01/2025 11:33:47 [...] - 38 platlet 312 100 - 400 H-Urea Breath Test Reviewed date:05/11/2025 11:49:51 AM Interpretation:Negative Performing Lab: Notes/Report: Patient Height (inches): 61.00 Patient Weight (pounds): 193 HPYBREATHR Negative Negative Performed at: - [address] [id number] Inspector Wire Rope: Stevie Lawton PhD, Phone: [phone] Reason For Referral No Information Medications Medication SIG (Take, Route, Fr equency, Duration) Notes Start Date End Date Status Famotidine 20 MG Take 1 tablet by mouth twice daily Active Problems Problem Type SNOMED Code ICD Code Onset Dates Problem Status W/U Status Risk Notes Problem Besnier's prurigo (284908771) Allergic dermatitis (L20.0) Active confirmed Vital Signs Heart Rate 97 /min 06/30/2025 Blood pressure diastolic 78 mm Hg 06/30/2025 Height 60 in 06/30/2025 Blood pressure systolic 114 mm Hg 06/30/2025 Weight 196.8 lbs 06/30/2025 BMI 38.43 kg/m2 06/30/2025 Encounters Encounter Location Date Provider Diagnosis [facility] [address] [facility] [address] [place], [place] [id number] 11/03/2024 Brandon [place] Acute pain of right shoulder M25.511 and Muscle spasm of back M62.830 [facility] [address] [facility] [address] [place], [place] [id number] 12/28/2024 Jaycee Arrieta URI (upper respirato ry infection) J06.9 [facility] [address] [facility] [address] [place], [place] [id number] 05/03/2025 Brandon [place] Heartburn R12 [facility] [address] [facility] [address] [place], [place] [id number] 06/30/2025 Brandon [place] Epigastric abdominal pain R10.13 and Heartburn R12 [facility] [address] [facility] [address] [place], [place] [id number] 07/01/2025 Brandon [place] [facility] [address] [facility] [address] [place], [place] [id number] 12/31/2024 Jaycee Arrieta Assessments Encounter Date Diagnosis (ICD Code) Assessment Notes Treatment Notes Treatment Clinical Notes Section Notes 11/03/2024 Muscle spasm of back (ICD-10 - M62.830) 11/03/2024 Acute pain of right shoulder (ICD-10 - M25.511) Home exercise program provided to patient 12/28/2024 URI (upper respiratory infection) (ICD-10 - J06.9) fluids, rest, supportive measures for fever/symptom relief, OTC decongestant and/or cough medicine of choice 05/03/2025 Heartburn (ICD-10 - R12) 06/30/2025 Heartburn (ICD-10 - R12) 06/30/2025 Epigastric abdominal pain (ICD-10 - R10.13) Plan Of Treatment Pending Test Test Name Order Date Ultrasound : Abdomen limited 06/30/2025 Insurance Providers Payer Name Payer Address Payer Phone Subscriber Number Group Number Insured Name Patient Relationship to Insured Coverage Start Date Coverage End Date [employer] [id number] [place] [id number] RITA QIU Self - patient is the insured Medical (General) History Surgical History Surgery Date(Month/Year)
--- OUTSIDE RECORDS SUMMARY | 2025-07-08 09:34 | XMS_ITS | Patient Health Record ---
Author Organization [facility] Address [address] [facility] 36 [facility] [address] [place] [address] Care Team Providers Care Steel Fabricating Supervisor Name Role Phone Ivan Jeff Primary Care Provider [phone] IVAN Jeff APRN Unavailable Unavailable Migration, Provider [...] Provider Diagnosis [facility] [address] [facility] 36 [facility] [address] [place] [phone] 01/23/2025 Provider Migration Viral URI with cough [...] Coverage End Date [employer] [address] [place], [place] [phone] [id number] Estela Lopez Self - patient is the insured Medications Administered Medication Instructions Date of Administration Dosage Notes Dexamethasone 4mg Injection 11/01/2022 4 mg Medical (General) History Hospitalization History Reason Date(Month/Year) Childbirth
== END 2025-07-08 23:59 | disposition home or self-care (01) ==
LOC: RAD 09:30
PROVIDERS: PCP Family Medicine; Visit Provider Family Medicine
DX: K80.20 Calculus of gallbladder without cholecystitis without obstruction (principal)
CPT/HCPCS: 76705

== ENCOUNTER 2025-07-12 20:58 | Observation (INO) | payer OTHER, SELFPAY ==
--- OUTSIDE RECORDS SUMMARY | 2024-06-24 07:00 | XMS_ITS ---
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 Name Role Phone Tonya Levin Primary Care Provider [phone] BrennanChristina wyman Unavailable [phone] Allergies Allergen (clinical drug ingredient) Drug/Non Drug Allergy documented on EMR Reaction Allergy Type Onset Date Status promethazine Phenergan stomach upset Drug Allergy Active Results Component Value Reference Range Notes Rapid Strep- Inhouse Reviewed date:06/24/2024 01:12:11 PM Interpretation: Performing Lab: Notes/Report: strep test Neg CBC Fingerstick (in house) Reviewed date:06/24/2024 01:12:11 PM Interpretation: Performing Lab: Notes/Report: wbc 6.3 3.5 - 10 lym 44.0% 15 - 50 mid 6.1% 2 - 15 gran 49.9% 35 - 80 rbc 4.58 3.5 - 5.5 hgb 13.6 11.5 - 16.5 hct 39.6 35 - 55 mcv 86.5 75 - 100 mch 29.7 25 - 35 mchc 34.3 31 - 38 plat 222 100 - 400 Covid test (in house) Reviewed date:06/24/2024 01:12:11 PM Interpretation: Performing Lab: Notes/Report: Result: Neg REASON FOR VISIT itcy throat, congested, cough since Saturday Medications Medication SIG (Take, Route, Frequency, Duration) Notes Start Date End Date Status Bromfed DM 2-30-10 MG/5ML 5-10 mL Orally four times a day, prn 06/24/2024 Active Vital Signs Blood pressure systolic 120 mm Hg 06/24/20 24 Blood pressure diastolic 80 mm Hg 024 Heart Rate 94 /min 06/24/2024 Height 60 in 06/24/2024 Weight 186.8 lbs 06/24/2024 BMI 36.48 kg/m2 06/24/2024 Encounters Encounter Location Date Provider Diagnosis [facility] [address] [facility] [address] [facility] [address] [place] [id number] 06/24/2024 Christina Hernandez Acute URI J06.9 Assessments Encounter Date Diagnosis (ICD Code) Assessment Notes Treatment Notes Treatment Clinical Notes Section Notes 06/24/2024 Acute URI (ICD-10 - J06.9) Plan Of Treatment Medication Medication Name Sig Start Date Stop Date Notes Bromfed DM 2-30-10 MG/5ML 5-10 mL Orally four times a day, prn 06/24/2024 Next Appt Details Follow Up: prn, Reason: Progress Notes * RITA QIUDOB: 0 (34 yo F)Acc No.[id number]:06/24/2024 Progress Notes Patient: RITA JEREZ Provider: DWAYNE Barfield :1990 A ge:33 Y S ex:Female Date:06/24/2024 Address:[address] [place] [address] E, [place], [id number] Pcp:Tonya Levin Subjective: * Chief Complaints: * 1 . itcy throat, congested, cough since Saturday. * HPI: E NT/respiratory: The pt is here today with c/o sore itchy throat and cough since Saturday. Pt states she started with sore throat and congestion. Pt denies any fever. Pt states her daughter was sick last week on Saturday but was feeling better by Saturday. 33 year old female presents with c/o sore throat. c/o cough. Denies : Fever. D enies : Chest Pain. D enies : Short of Breath. * ROS: D ERMATOLOGY: no R nancy. n o H earle. G ASTROENTEROLOGY: no N ausea. n o V omiting. n o D iarrhea.? U ROLOGY: no D ifficulty urinating. n o B lood in urine. * Medical History: M edical History Verified. * Family History: F ather: alive. M other: alive. * Social History: C URRENT TOBACCO USE: No . C affeine: yes, frequency:. Home smoke detector use: yes. Alcohol: No. * Medications: D iscontinued metroNIDAZOLE 500 MG Tablet 1 tablet Orally Two times a day , Medication List reviewed and reconciled with the patient * Allergies: P henergan: stomach upset. Objective: * Vitals: W t:186.8, Temp:98.3, BP:120/80, HR:94, Nurse:CATHIE, Ht: 60, BMI:36.48. * Examination: E NT/Respiratory: General Appearance: N AD. E ars: a uditory canals normal bilaterally, TM's WNL. N ose : turbinates red, congested. S inuses : tender maxillary sinuses bilaterally. O ral cavity : erythema without exudate on pharynx, PND present. N fanta : n o cervical lymphadenopathy. H eart : R RR, normal S1 S2, no murmurs. L ungs: c lear to auscultation bilaterally. Assessment: * Assessment: 1. Jaleesa lucas URI - J06.9 (Primary) Plan: * Treatment: Value Reference Range s trep test Neg * Lesley Reagan 06/24/2024 11:0 7:55 AM > , Provider reviewed results while patient in office. ?LAB: CBC Fingerstick (in house) (Collection Date & Time - 06/24/2024)* Value Reference Range w bc 6.3 3.5 - 10 * l ym 44.0% 15 - 50 * m id 6.1% 2 - 15 * g ran 49.9% 35 - 80 * r bc 4.58 3.5 - 5.5 * h gb 13.6 11.5 - 16.5 * h ct 39.6 35 - 55 * m cv 86.5 75 - 100 * m ch 29.7 25 - 35 * m chc 34.3 31 - 38 * p lat 222 100 - 400 * Lesley Reagan 06/24/2024 11:1 3:58 AM > , Provider reviewed results while patient in office. ?LAB: Covid test (in house) (Collection Date & Time - 06/24/2024)* Value Reference Range R esult: Neg * Lesley Reagan 06/24/2024 11:1 5:24 AM > , Provider reviewed results while patient in office. * Procedure Codes: 8 7880 STREP A ASSAY W/OPTIC, Modifiers: QW , 03031 COVID TEST IN HOUSE, Modifiers: QW , 40543 CAPILLARY BLOOD DRAW, 40469 CBC WITH AUTO DIFF * Follow Up: p rn * Images: Billing Information: * Visit Code: 27643 Office Visit, Est Pt., Level 3. * Procedure Codes: 15118 STREP A ASSAY W/OPTIC. Modifiers: QW 90905 COVID TEST IN HOUSE. Modifiers: QW 57583 CAPILLARY BLOOD DRAW. 03017 CBC WITH AUTO DIFF. * Electronic signature of DWAYNE Rosenberg on 07/12/2025 at 09:04 PM EDT Sign off status: Pending * Provider: DWAYNE Barfield Date: 0 06/24/2024 Generated for Tevin ng/Fajaeg/eTransmitting on: 0 07/12/2025 09:04 PM EDT History and Physical Notes * HPI (History of Present Illness) Category Sub-Category Detail Notes Category Not es ENT/respiratory sore throat Short of Breath Chest Pain cough Fever Examination Category Sub-Category Detail Notes Category Not es ENT/Respiratory Oral cavity : erythema without exudate on pharynx, PND present Sinuses : tender maxillary sin uses bilaterally Ears: auditory canals norm al bilaterally, TM's WNL Neck : no cervical lymphade nopathy Heart : RRR, normal S1 S2, n o murmurs Lungs: clear to auscultatio n bilaterally General Appearance: NAD Nose : turbinates red, keila ested
--- OUTSIDE RECORDS SUMMARY | 2024-11-03 05:15 | XMS_ITS ---
Author Organization Rogelio Address [address] [facility] [address] [id number] Care Team Providers Care Ornament Setter Name Role Phone Tonya Levin Primary Care Provider Brandon Alfaro Unavailable [phone] Allergies Allergen (clinical drug ingredient) Drug/Non Drug Allergy documented on EMR Reaction Allergy Type Onset Date Status promethazine Phenergan stomach upset Drug Allergy Active REASON FOR VISIT shoulder pain Medications Medication SIG (Take, Route, Frequency, Duration) Notes Start Date End Date Status Cyclobenzaprine HCl 5 MG 1 tablet as nee ded Orally Three times a day 11/03/2024 Active Meloxicam 15 MG 1 tablet Orally Once a day; Duration: 30 day(s) 11/03/2024 Active Vital Signs Blood pressure systolic 122 mm Hg 11/03/19 25 Blood pressure diastolic 80 mm Hg 025 Heart Rate 109 /min 11/03/2024 Height 60 in 11/03/2024 Weight 204 lbs 11/03/2024 BMI 39.84 kg/m2 11/03/2024 Encounters Encounter Location Date Provider Diagnosis [facility] [address] [facility] [address] [id number] 11/03/2024 Brandon Alfaro Acute pain of right shoulder M25.511 and Muscle spasm of back M62.830 Assessments Encounter Date Diagnosis (ICD Code) Assessment Notes Treatment Notes Treatment Clinical Notes Section Notes 11/03/2024 Acute pain of right shoulder (ICD-10 - M25.511) Home exercise program provided to patient 11/03/2024 Muscle spasm of back (ICD-10 - M62.830) Plan Of Treatment Medication Medication Name Sig Start Date Stop Date Notes Cyclobenzaprine HCl 5 MG 1 tablet as nee ded Orally Three times a day 11/03/2024 Meloxicam 15 MG 1 tablet Orally Once a day; Duration: 30 day(s) 11/03/2024 Treatment Notes Assessment Notes Acute pain of right shoulder Home exerci se program provided to patient Next Appt Details Follow Up: via phone to repo rt progress, Reason: Progress Notes * RITA QIUDOB: 0 (34 yo F)Acc No.[id number]:11/03/2024 Progress Notes Patient: RITA JEREZ Provider: Brice Alfaro M.D. :1990 A ge:33 Y S ex:Female Date:11/03/2024 Address:[address] [place] [address], [facility], [id number] Pcp:Tonya Levin Subjective: * Chief Complaints: * 1 . Shoulder pain. * HPI: S houlder/Upper arm: 33 year old female presents with c/o shoulder pain P t complains of rt shoulder pain for about a month. Pt states she thought she may have been sleeping on it wrong but pain has worsened. Pt states that she has poor range of motion due to the pain. * ROS: D ERMATOLOGY: no R nancy. n o H earle. G ASTROENTEROLOGY: no N ausea. n o V omiting. U ROLOGY: no D ifficulty urinating. n o B lood in urine. * Medical History: M edical History Verified. * Surgical History: D enies Past Surgical History. * Hospitalization/Major Diagno stic Procedure: D enies Past Hospitalization. * Family History: F ather: alive. M other: alive. * Social History: C URRENT TOBACCO USE: No . C affeine: yes, frequency:. Home smoke detector use: yes. Alcohol: No. * Medications: D iscontinued Bromfed DM 2-30-10 MG/5ML Syrup 5-10 mL Orally four times a day, prn , Medication List reviewed and reconciled with the patient * Allergies: P henergan: stomach upset. Objective: * Vitals: W t:204, Temp:98.0, BP:122/80, HR:109, Nurse:eleno, Ht: 60, BMI:39.84. * Examination: G eneral Examination: General Appearance: N AD. S houlder / Upper arm: Shoulder: right. I nspection: n o swelling or redness. P alpation: n o tenderness on subdeltoid bursa & bicipital tendon, some posterior tenderness along the trapezius muscle. R hakan of motion: p ain and weakness with supraspinatus testing. S trength: diminished supraspinatus strength. Assessment: * Assessment: 1. A cute pain of right shoulder - M25.511 (Primary) 2 . M uscle spasm of back - M62.830 Plan: * Treatment: 2. M uscle spasm of back Start Cyclobenzaprine HCl Tablet, 5 MG, 1 tablet as needed, Orally, Three times a day, 30, Refills 0. * Follow Up: v ia phone to report progress * Images: Billing Information: * Visit Code: 63177 Office Visit, Est Pt., Level 3. * Procedure Codes: * Electronic signature of Kelley Alfaro MD on 07/12/2025 at 09:02 PM EDT Sign off status: Pending * Provider: Brice Alfaro M.D. Date: 0 11/03/2024 Generated for Tevin nguyen/Adeel/Mimiitting on: 0 07/12/2025 09:02 PM EDT History and Physical Notes * HPI (History of Present Illness) Category Sub-Category Detail Notes Category Not es Shoulder/Upper arm shoulder pain Pt complains of rt shoulder pain for about a month. Pt states she thought she may have been sleeping on it wrong but pain has worsened. Pt states that she has poor range of motion due to the pain Examination Category Sub-Category Detail Notes Category Not es General Examination General Appearance: NAD Shoulder / Upper arm Range of motion: pain and w eakness with supraspinatus testing Strength: diminished supraspin atus strength Shoulder: right Inspection: no swelling or redne ss Palpation: no tenderness on sub deltoid bursa & bicipital tendon, some posterior tenderness along the trapezius muscle
--- OUTSIDE RECORDS SUMMARY | 2024-12-28 09:30 | XMS_ITS ---
Author Organization [facility] Address [address] [place] [phone] Care Team Providers Care Glaze Maker Name Role Phone Tonya Levin Primary Care Provider [phone] Meenakshi Jaycee Unavailable [phone] Allergies Allergen (clinical drug ingredient) Drug/Non Drug [...] Encounter Location Date Provider Diagnosis [facility] [address] [facility] [address] [facility] [address] [phone] 12/28/2024 Jaycee Arrieta URI (upper respirato ry [...] * RITA QIUDOB: 0 (34 yo F)Acc No.[id number]:12/28/2024 Progress Notes Patient: RITA JEREZ Provider: GHAZAL Boyer :1990 A ge:34 Y S ex:Female Date:12/28/2024 Address:[address] [place] [address] [place], [place], [id number] Pcp:Tonya Levin Subjective: * Chief Complaints: * [...] * Procedure Codes: 9 [address] [place], [address] CAPILLARY BLOOD DRAW, 01621 CBC WITH AUTO DIFF, 17192 Flu Test- Nasal Swab, Modifiers: QW , 3074F SYST BP LT 130 MM HG, 3079F DIAST BP 80-89 MM HG * Follow Up: p rn * Images: Billing Information: * Visit Code: 67457 Office Visit, Est Pt., Level 3. * Procedure Codes: [address] [place] [address] CAPILLARY BLOOD DRAW. 92647 CBC WITH AUTO DIFF. 78983 Flu Test- Nasal Swab. Modifiers: QW 3074F SYST BP LT 130 MM HG. 3079F DIAST BP 80-89 MM HG. * Electronic signature of Loren kayalejandro Arrieta APRN on 07/12/2025 at 09:02 PM EDT Sign off status: Pending * Provider: GHAZAL Boyer Date: 0 12/28/2024 Generated for Tevin nguyen/Adeel/eTrosiitting on: 0 07/12/2025 09:02 PM EDT History [...]
--- OUTSIDE RECORDS SUMMARY | 2025-01-23 17:30 | XMS_ITS ---
Author Organization [facility] Address [address] [place] [address] Care Team Providers Care Pruner Name Role Phone Ivan Jeff Primary Care Provider IVAN Jeff APRN Unavailable Unavailable Migration, Provider Unavailable Unavailable Allergies Allergen (clinical drug ingredient) Drug/Non Drug Allergy documented on EMR Reaction Allergy Type Onset Date Status promethazine Phenergan vomiting Drug Allergy Acti ve REASON FOR VISIT Multum To [facility] Conversion Encounter Medications Medication SIG (Take, Route, Frequency, Duration) Notes Start Date End Date Status Pseudoephedrine HCl ER 120 MG 1 tab(s) o rally every 12 hours; Duration: 14 days 12/09/2023 Active Encounters Encounter Location Date Provider Diagnosis [facility] PED TAYE [address] [place] [phone] 01/23/2025 Provider Migration Viral URI with cough [...] * Estela QIUDOB: 0 (34 yo F)Acc No.[id number]:01/23/2025 Patient: Estela JEREZ Provider: Gian Starr :1990 A ge:34 Y S ex:Female Date:01/23/2025 Address:[address] [place] [address] [address] [id number] Pcp:Ivan Jeff Subjective: * Chief Complaints: * 1 . Multum To Medispan Conversion Encounter. * Medical History: * Allergies: P jeremie: vomiting - Allergy. Objective: * Vitals: Assessment: * Assessment: 1. V iral URI with cough - J06.9 (Primary) Plan: * Treatment: * * Electronic signature of Prov ider Migration on 07/12/2025 at 09:03 PM EDT Sign off status: Pending * Provider: Gian Starr Date: 01/23/2025 Generated for Tevin nguyen/Adeel/eTransmitting on: 0 07/12/2025 09:03 PM EDT
--- OUTSIDE RECORDS SUMMARY | 2025-05-03 07:00 | XMS_ITS ---
Author Organization [facility] Address [address] [place] [id number] Care Team Providers Care Roentgenology Teacher Name Role Phone Tonya Levin Primary Care Provider [phone] Brandon Alfaro [phone] Allergies Allergen (clinical drug ingredient) Drug/Non Drug Allergy documented on EMR Reaction Allergy Type Onset Date Status promethazine Phenergan stomach upset Drug Allergy Active Results Component Value Reference Range Notes H-Urea Breath Test Reviewed date:05/11/2025 11:49:51 AM Interpretation:Negative Performing Lab: Notes/Report: Patient Height (inches): 61.00 Patient Weight (pounds): 193 HPYBREATHR Negative Negative Performed at: [facility] [address] [id number] Farm Boss: Stevie Lawton PhD, Phone: [phone] REASON FOR VISIT indigestion Medications Medication SIG (Take, Route, Fr equency, Duration) Notes Start Date End Date Status Famotidine 20 MG 1 tablet Orally twic e a day; Duration: 30 days 05/03/2025 Active Vital Signs Blood pressure systolic 122 mm Hg 05/03/20 25 Blood pressure diastolic 78 mm Hg 025 Heart Rate 96 /min 05/03/2025 Height 60 in 05/03/2025 Weight 193 lbs 05/03/2025 BMI 37.69 kg/m2 05/03/2025 Encounters Encounter Location Date Provider Diagnosis [facility] [address] [place] [phone] 05/03/2025 Brandon Alfaro Heartburn R12 Assessments Encounter Date Diagnosis (ICD Code) Assessment Notes Treatment Notes Treatment Clinical Notes Section Notes 05/03/2025 Heartburn (ICD-10 - R12) Plan Of Treatment Medication Medication Name Sig Start Date Stop Date Notes Famotidine 20 MG 1 tablet Orally twic e a day; Duration: 30 days 05/03/2025 Next Appt Details Follow Up: via phone to repo rt test results, Reason: Progress Notes * RITA QIUDOB: 0 (34 yo F)Acc No.[id number]:05/03/2025 Progress Notes Patient: RITA JEREZ Provider: Brice Alfaro M.D. :1990 A ge:34 Y S ex:Female Date:05/03/2025 Address:[address] [place] [address], [facility], [id number] Pcp:Tonya Levin Subjective: * Chief Complaints: * 1 . Indigestion. * HPI: G astroenterology: 34 year old female presents with c/o Indigestion P t states that it stared 3 months ago. Pt states its at night for a few hours. . * ROS: D ERMATOLOGY: no R nancy. [...] URRENT TOBACCO USE: No . C affeine: yes. Home smoke detector use: yes. Alcohol: No. * Medications: D iscontinued Benzonatate 200 MG Capsule 1 capsule as needed Orally Three times a day, as needed , Discontinued Ppbefaqmr-Momglbfm-FG 30-1-20 MG/5ML Liquid 5 mL as needed Orally every 6 hrs , Discontinued Cyclobenzaprine HCl 5 MG Tablet 1 tablet as needed Orally Three times a day , Discontinued Meloxicam 15 MG Tablet Take 1 tablet by mouth once daily , Medication List reviewed and reconciled with the patient * Allergies: P henergan: stomach upset. Objective: * Vitals: W t: 193, Temp: 00, BP: 122/78, HR: 96, Nurse: eleno, Ht: 60, BMI:37.69. * Examination: G astroenterology: General Appearance: p leasant, NAD. O ral cavity: n ormal. S clera: a nicteric. H eart sounds: r egular, normal S1 S2. L ungs: c lear, no rales or wheezes. A bdomen: B S present, soft, nontender, no guarding or rigidity, no masses felt. Assessment: * Assessment: 1. H eartburn - R12 (Primary) Plan: * Treatment: Value Reference Range H PYBREATHR Negative Negative - * Roxanne Fox 05/11/2025 11:49: 46 AM EDT > Pt informed * Procedure Codes: 1 036F TOBACCO NON-USER, 3074F SYST BP LT 130 MM HG, 3078F DIAST BP < 80 MM HG * Follow Up: v ia phone to report test results * Images: Billing Information: * Visit Code: 96028 Office Visit, Est Pt., Level 3. * Procedure Codes: 1036F TOBACCO NON-USER. 3074F SYST BP LT 130 MM HG. 3078F DIAST BP < 80 MM HG. * Electronic signature of Kelley Alfaro MD on 07/12/2025 at 09:04 PM EDT Sign off status: Pending * Provider: Brice Alfaro M.D. Date: 05/03/2025 Generated for Tevin nguyen/Adeel/Germaine on: 07/12/2025 09:04 PM EDT History and Physical Notes * HPI (History of Present Illness) Category Sub-Category Detail Notes Category Not es Gastroenterology Indigestion Pt states that it stared 3 months ago. Pt states its at night for a few hours. Examination Category Sub-Category Detail Notes Category Not es Gastroenterology Oral cavity: normal Sclera: anicteric Heart sounds: regular, normal S1 S 2 Lungs: clear, no rales or w heezes Abdomen: BS present, soft, no ntender, no guarding or rigidity, no masses felt General Appearance: pleasant, NAD
--- OUTSIDE RECORDS SUMMARY | 2025-06-30 10:00 | XMS_ITS ---
Author Organization [facility] Address [address] [place] [id number] Care Team Providers Care Rope Cutter Name Role Phone Tonya Levin Primary Care Provider [phone] Brandon Alfaro Unavailable [phone] Allergies Allergen (clinical drug ingredient) Drug/Non Drug [...] Interpretation:Normal Performing Lab: Notes/Report: Test performed by [facility] [address] [place], [place] [address] , [address], [place] [address] Martinez Jane MD, Coil Rewind Machine Operator CLIA: [id number] Amylase 36 28-100 U/L P-Comprehensive Metabolic Pa luz (CMP) Reviewed date:07/01/2025 11:33:47 AM Interpretation:ALT 50 Performing Lab: Notes/Report: Test performed by [facility] [address] [place] [address] , [address], [place] [address] Martinez Jane MD, Coil Rewind Machine Operator CLIA: [id number] Sodium 140 135-145 mmol/L Potassium 3.9 3.5-5.3 [...] Interpretation:Normal Performing Lab: Notes/Report: Test performed by [facility] [address] [place] [address] , [address], [place] [address] Martinez Jane MD, Coil Rewind Machine Operator CLIA: [id number] Cholesterol 175 <200 mg/dL Triglycerides 55 <150 [...] Results: 115 Units: mg/dL % Change: - Ultrasound : Abdomen limited Reviewed date:07/09/2025 12:29:25 PM Interpretation:cholelithiasis without obstruction Performing Lab: Notes/Report: cholelithiasis without obstruction REASON FOR VISIT POSS. Gallbladder issues Medications Medication SIG (Take, Route, Fr equency, Duration) Notes Start Date End Date Status Famotidine 20 MG Take 1 tablet by mouth twice daily Active Vital Signs Blood pressure systolic 114 mm Hg 06/30/20 25 Blood pressure diastolic 78 mm Hg 025 Heart Rate 97 /min 06/30/2025 Height 60 in 06/30/2025 Weight 196.8 lbs 06/30/2025 BMI 38.43 kg/m2 06/30/2025 Encounters Encounter Location Date Provider Diagnosis [facility] [address] [facility] [address] [place] [address], [place] [id number] 06/30/2025 Brandon [place] Epigastric abdominal pain R10.13 and Heartburn R12 Assessments Encounter Date Diagnosis (ICD Code) Assessment Notes Treatment Notes Treatment Clinical Notes Section Notes 06/30/2025 Epigastric abdominal pain (ICD-10 - R10.13) 06/30/2025 Heartburn (ICD-10 - R12) Plan Of Treatment Medication Medication Name Sig Start Date Stop Date Notes Famotidine 20 MG Take 1 tablet by mouth twice daily Next Appt Details Follow Up: via phone to repo rt test results, Reason: Progress Notes * LORETTA QIU: 0 (34 yo F)Acc No.[id number]:06/30/2025 Progress Notes Patient: RITA JEREZ Provider: Brice Alfaro M.D. :1990 A ge:34 Y S ex:Female Date:06/30/2025 Address:[address] [place], [place], [id number] Pcp:Tonya Levin Subjective: * Chief Complaints: * [...] Nurse: SF, Ht: 60, BMI:38.43. * Examination: Nita astroenterology: General Appearance: p leasant, NAD. O [...] p latlet 312 100 - 400 * King Roxanne 06/30/2025 02:37: 05 PM EDT > Vilma Natarajan 07/01/2025 11:33:40 AM EDT > See phone encounter ?Imaging: Ultrasound : Abdomen limited (Performed Date - 07/08/2025)? cholelithiasis without obstruction* Emelia Pompa 07/01/2025 11:4 0:47 AM EDT > no auth required; CPT code 68233; faxed to [facility] Marlena Tineo 07/09/2025 12:29:19 PM EDT > See phone encounter 2.?Heartburn? Continue Famotidine Tablet, 20 MG, Take 1 tablet by mouth twice daily.?? * Procedure Codes: 8 5025 CBC WITH AUTO DIFF, 1036F TOBACCO NON-USER, 3074F SYST BP LT 130 MM HG, 3078F DIAST BP < 80 MM HG * Follow Up: v ia phone to report test results * Images: Billing Information: * Visit Code: 64756 Office Visit, Est Pt., Level 4. * Procedure Codes: 15845 CBC WITH AUTO DIFF. 1036F TOBACCO NON-USER. 3074F SYST BP LT 130 MM HG. 3078F DIAST BP < 80 MM HG. * Electronic signature of Kelley Alfaro MD on 07/12/2025 at 09:03 PM EDT Sign off status: Pending * Provider: Brice Alfaro M.D. Date: 06/30/2025 Generated for Tevin nguyen/Adeel/eTransmitting on: 0 07/12/2025 09:03 PM EDT History and Physical Notes * [...]
[2025-07-12 21:03] VITALS: BP 130/90; PULSE 102; RESP 16; TEMP 36.6; O2SAT 98; BMI 36.6
--- OUTSIDE RECORDS SUMMARY | 2025-07-12 21:04 | XMS_ITS | Patient Health Record ---
Author Organization [facility] Address [address] [facility] 36 [facility] [address] [place] [address] Care Team Providers Care Family Counselor Name Role Phone Ivan Jeff Primary Care [...] Provider Diagnosis [facility] [address] [facility] 36 [facility] [address] [place] [address] 01/23/2025 Provider Migration Viral URI with cough [...] Coverage End Date [employer] [address] [place], [place] [phone] [id number] Estela Lopez Self - patient is the insured Medications Administered Medication Instructions Date of Administration Dosage Notes Dexamethasone 4mg Injection 11/01/2022 4 mg Medical (General) History Hospitalization History Reason Date(Month/Year) Childbirth
--- OUTSIDE RECORDS SUMMARY | 2025-07-12 21:04 | XMS_ITS | Patient Health Record ---
Author Organization [facility] Address [address] [place] Khan [phone] Care Team Providers Care Roads Superintendent Name Role Phone Tonya Levin Primary Care Provider Brandon Alfaro Unavailable [phone] ArrietaTana lewisJaycee Unavailable [phone] Allergies Allergen (clinical drug ingredient) Drug/Non Drug [...] - 38 plat 217 100 - 400 CBC Venipuncture (in house) Reviewed date:07/01/2025 11:33:47 [...] Interpretation:Normal Performing Lab: Notes/Report: Test performed by [facility] [address] [place] [address] [address], [place] [address] Martinez Jane MD, Rod Finisher CLIA: [id number] Amylase 36 28-100 U/L P-Comprehensive Metabolic Pa luz (CMP) Reviewed date:07/01/2025 11:33:47 AM Interpretation:ALT 50 Performing Lab: Notes/Report: Test performed by [facility] [address] [place] [address] , [address], [place] [address] Martinez Jane MD, Rod Finisher CLIA: [id number] Sodium 140 135-145 mmol/L Potassium 3.9 3.5-5.3 [...] Interpretation:Normal Performing Lab: Notes/Report: Test performed by [facility] [address] [place] [address] , [address], [place] [address] Martinez Jane MD, Rod Finisher CLIA: [id number] Cholesterol 175 <200 mg/dL Triglycerides 55 <150 [...] obstruction Performing Lab: Notes/Report: cholelithiasis without obstruction H-Urea Breath Test Reviewed date:05/11/2025 11:49:51 AM Interpretation:Negative Performing Lab: Notes/Report: Patient Height (inches): 61.00 Patient Weight (pounds): 193 HPYBREATHR Negative Negative Performed at: [address] [id number] Ammonium Hydroxide Operator: Stevie Lawton PhD, Phone: [phone] Reason For Referral No Information Medications Medication SIG (Take, Route, Fr equency, Duration) Notes Start Date End Date Status Famotidine 20 MG Take 1 tablet by mouth twice daily Active Problems Problem Type SNOMED Code ICD Code Onset Dates Problem Status W/U Status Risk Notes Problem Besnier's prurigo (205205273) Allergic dermatitis (L20.0) Active confirmed Vital Signs Heart Rate 97 /min 06/30/2025 Blood pressure diastolic 78 mm Hg 06/30/2025 Height 60 in 06/30/2025 Blood pressure systolic 114 mm Hg 06/30/2025 Weight 196.8 lbs 06/30/2025 BMI 38.43 kg/m2 06/30/2025 Encounters Encounter Location Date Provider Diagnosis [facility] [address] [facility] [address] [place], [place] [phone] 11/03/2024 Brandon [place] Acute pain of right shoulder M25.511 and Muscle spasm of back M62.830 [facility] [address] [facility] [address] [place], [place] [id number] 12/28/2024 Jaycee Arrieta URI (upper respirato ry infection) J06.9 [facility] [address] [facility] [address] [place], [place] [id number] 05/03/2025 Brandon [place] Heartburn R12 [facility] [address] [facility] [address] [place], [place] [id number] 06/30/2025 Brandon [place] Epigastric abdominal pain R10.13 and Heartburn R12 [facility] [address] [place], [place] [id number] 12/31/2024 Jaycee Arrieta [facility] [address] [facility] [address] [place], [place] [phone] 07/01/2025 Brandon [place] Assessments Encounter Date Diagnosis (ICD Code) Assessment [...] pain (ICD-10 - R10.13) Plan Of Treatment No Information Insurance Providers Payer Name Payer Address Payer Phone Subscriber Number Group Number Insured Name Patient Relationship to Insured Coverage Start Date Coverage End Date [facility] [address] [place] [id number] RITA QIU Self - patient is the insured Medical (General) History Surgical History Surgery Date(Month/Year)
--- NOTE | 2025-07-12 21:18 | PC.NURSE ---
Dr Barraza at bedside doing POCUS
--- NOTE | 2025-07-12 21:24 | ED_ITS ---
Discharge Plan Disposition Patient Disposition: Admitted Clinical Impressions Clinical Impression: Cholecystolithiasis Discharge ED Provider: Rich Barraza General Adult HPI General Chief complaint: Abdominal Pain Stated complaint: Possbile Galbladder Attack Time Seen by Provider: 07/12/25 21:11 Mode of Arrival: Ambulatory Source of Information: Patient Description of Symptoms (Recalled from ER Triage Doc. by RN): Pt has been having RUQ pain for several days, seen Angelina and he did US of her gallbladder, told she had stones and needed to see surgeon. Pt is suppose to go but increased pain this evening 10/10 associated with nausea and vomiting. History of Present Illness HPI narrative: Estela Lopez is a 34y female with a history of gallstones who presents to the emergency department for complaints of right upper quadrant pain, nausea and vomiting. Patient states that she has had issues with her gallbladder for approximately a year and had an ultrasound on the of this month that confirmed that she has gallstones. She is scheduled to meet with Dr. Coffman on for consultation, however over the last 3 days, she has had significantly worsening right upper quadrant pain with uncontrolled nausea and vomiting. She states that a lot of times of vomiting makes it better but it has not improved recently. She states that the pain radiates to her right back. She denies any diarrhea, pale stools, dark urine or urinary symptoms. She has been taking ibuprofen at home without relief. Related Data Home Medications ?Medication ?Instructions ?Recorded ?Confirmed prochlorperazine maleate 5 mg 5 mg PO TID PRN Nausea A nd Vomiting 04/09/24 07/12/25 tablet Previous Rx's ?Medication ?Instructions ?Recorded omeprazole 20 mg capsule,delayed 20 mg PO DAILY 14 day s #14 caps 06/08/24 release Allergies Allergy/AdvReac Type Severity Reaction Status Date / Time promethazine (From Phenergan) Allergy Verified 05/05/24 08:53 [facility] Disclaimer: The information contained in this section may have been updated after the patient was seen, as this information can be updated by other users. Medical History Dysuria Ovarian cyst Surgical History No history of previous surgery Family History Other Cancer Thyroid disorder Social History (Updated 07/12/25 @ 23:28 by Che Chi RN) Smoking Status: Never smoker alcohol intake: never current occupational status: employed and other Travel in the last 8 weeks?: None household members: other housing: other current occupational exposures/hazards: No caffeine: Yes Have you lived/traveled outside [place] in past 30 days?: No Contact w/someone who lives/traveled outside US past 30 days?: No Exposure to someone with infectious disease in past 14 days?: No Do you have a fever (greater than 100.4 F or 38 C)?: No Have you tested positive for COVID-19?: No Exposed to someone with COVID-19 in past 14 days?: No Do you have a sore throat?: No Do you have a cough?: No Do you have any weakness?: No Do you have any diarrhea?: No Are you experiencing any unusual bleeding?: No Do you have any muscle aches/pain?: No Do you have any abdominal pain?: No Are you experiencing loss of taste or smell?: No Other Medical History Have you received the Flu Vaccine for this season: Yes Have you received the Pneumonia Vaccine: No ROS Obtained: Yes Systems reviewed as appropriate & no additional complaints except as documented Physical Exam General General appearance: alert and in no apparent distress Comment: Uncomfortable appearing Head Head exam: atraumatic Eye Eye exam: Present normal appearance ENT ENT exam: Present normal external ear exam Neck Neck exam: Present full ROM Chest Chest inspection: Present symmetric chest wall rise Respiratory Respiratory exam: Present normal lung sounds bilaterally; Absent respiratory distress, wheezes or stridor Cardiovascular Cardiovascular exam: Present regular rate and normal rhythm Abdominal Exam Abdominal exam: Present soft, tenderness (RUQ), guarding (RUQ) and Robb's sign; Absent rigidity Extremities Exam Extremities exam: Present normal inspection Back Exam Back exam: Present normal inspection Neurological Exam Neurological exam: Present alert and oriented X3 Psychiatric Psychiatric exam: Present normal affect Skin Skin exam: Present warm and dry Medical Decision Making Medical Records Screening: Per USPSTF and CDC recommendations, given the prevalence of disease in our region, it is our hospital?s policy to screen for HIV and viral Hepatitis for all patients aged 18 and over and those with ongoing risk factors. Wood Inquiry Pt receiving controlled substance: No Vital Signs: 07/12/25 21:03 07/12/25 22:49 Temperature 97.9 F 97.9 F Temperature Source Oral Oral Pulse Rate 73 Pulse Rate [Left] 102 H Respiratory Rate 16 16 Blood Pressure 109/75 L Blood Pressure [Right Arm] 130/90 Blood Pressure Mean [Right Arm] 103 Blood Pressure Source Automatic Cuff Blood Pressure Source [Right Arm] Automatic Cuff Blood Pressure Position Sitting Blood Pressure Position [Right Arm] Sitting 02 Sat by Pulse Oximetry 98 Oxygen Delivery Method Room Air Room Air Lab Data Lab Results 07/12/25 21:10: WBC 8.8, RBC 4.49, Hgb 13.2, Hct 38.4, MCV 85.5, MCH 29.4, MCHC 34.4, RDW 12.2, Plt Count 329, MPV 10.2, Neut % (Auto) 56.4, Lymph % (Auto) 35.9, [place] % (Auto) 5.9, Eos % (Auto) 1.1, Baso % (Auto) 0.5, Neut # (Auto) 5.0, Lymph # (Auto) 3.2, [place] # (Auto) 0.5, Eos # (Auto) 0.1, Baso # (Auto) 0.0, PT 10.3, INR 0.92, APTT 27.6, Sodium 140, Potassium 3.9, Chloride 101, Carbon Dioxide 31 H, Anion Gap 11.9, BUN 7, Creatinine 0.60, Estimated Creat Clear 182, Estimated GFR 114, Est GFR ( Amer) 138, Glucose 123 H, Calcium 9.3, Total Bilirubin 0.4, AST 34, ALT 31, Alkaline Phosphatase 73, Total Protein 7.9, Albumin 4.8, Globulin 3.1, Albumin/Globulin Ratio 1.5, Lipase 91, Serum HCG, Qual Negative 07/12/25 21:10 07/12/25 21:10 Orders (Tests/Meds): ED MEDICATIONS Generic Name Dose Route Start Last Admin Trade Name Freq PRN Reason Stop Dose Admin Lactated Ringer's 1,000 mls @ 100 mls/hr 07/12/25 22:30 07/12/25 22:29 Lactated Ringer's 1000 Ml Bag IV 08/11/25 22:29 100 mls/hr .Q10H EDWAR Administration Morphine Sulfate 4 mg 07/12/25 22:17 07/12/25 22:37 Morphine 4mg/Ml Syringe IV 08/11/25 22:16 4 mg Q4HP PRN Administration Moderate to Severe Pain (4-10) Discontinued Medications Generic Name Dose Route Start Last Admin Trade Name Freq PRN Reason Stop Dose Admin Lactated Ringer's 1,000 mls @ 999 mls/hr 07/12/25 21:23 07/12/25 22:50 Lactated Ringer's 1000 Ml Bag IV 07/12/25 22:23 Infused .Q1H1M ONE Infusion Ketorolac Tromethamine 15 mg 07/12/25 22:04 07/12/25 22:29 Ketorolac 15mg/Ml Vial IV 07/12/25 22:05 15 mg ONCE ONE Administration Morphine Sulfate 4 mg 07/12/25 21:23 07/12/25 21:27 Morphine 4mg/Ml Syringe IV 07/12/25 21:24 4 mg ONCE ONE Administration Ondansetron HCl 4 mg 07/12/25 21:23 07/12/25 21:27 Ondansetron 4mg/2ml Vial IV 07/12/25 21:24 4 mg ONCE ONE Administration Ondansetron HCl 4 mg 07/12/25 22:17 07/12/25 22:29 Ondansetron 4mg/2ml Vial IV 07/12/25 22:18 4 mg ONCE ONE Administration ORDERS Category Date Time Status Consult to General Surgery [CONS] Stat Cons 07/12/25 22:24 Ordered POCUS Point of Care (ER Only) Stat Exams 07/12/25 21:11 Completed CBC w/Auto Diff [Complete Blood Count Auto Diff] Stat Lab 07/12/25 21:10 Completed CMP [Comprehensive Metabolic Panel] Stat Lab 07/12/25 21:10 Completed Lipase Stat Lab 07/12/25 21:10 Completed PT INR [Prothrombin Time INR] Stat Lab 07/12/25 21:10 Completed PTT [Activated Partial Thrombo Time] Stat Lab 07/12/25 21:10 Completed Serum [HCG Qualitative, Serum] Stat Lab 07/12/25 21:10 Completed Medical Decision Narrative: Estela Lopez is a 34y female with a history of gallstones who presents to the emergency department for complaints of right upper quadrant pain, nausea and vomiting. Patient states that she has had issues with her gallbladder for approximately a year and had an ultrasound on the of this month that confirmed that she has gallstones. She is scheduled to meet with Dr. Coffman on for consultation, however over the last 3 days, she has had significantly worsening right upper quadrant pain with uncontrolled nausea and vomiting. She states that a lot of times of vomiting makes it better but it has not improved recently. She states that the pain radiates to her right back. She denies any diarrhea, pale stools, dark urine or urinary symptoms. She has been taking ibuprofen at home without relief. On arrival, patient is hemodynamcially stable, in no acute respiratory distress, afebrile. Physical exam, as stated above, reveals an uncomfortable but non-toxic appearing female in no respiratory distress. She has RUQ abdominal tenderness with guarding but abdomen is soft and non-peritonitic. Cardiopulmonary exam is unremarkable. Differential diagnosis includes, but is not limited to: acute cholecystitis, choledocolithiasis, symptomatic cholelithiasis, acute pancreatitis, among others. The most morbid conditions were considered and workup was based on these. Workup in the emergency department included: RUQ POCUS, CBC, CMP, lipase, test, PT INR, PTT, UA. Patient's symptoms were treated with 4mg IV Zofran and 4mg IV Morphine. POCUS showed several gallstones within the gallbladder and borderline thickened gallbladder wall but no pericholecystic fluid, no CBD dilation. No GB distension. See procedure note for details. Patient's laboratory workup shows no leukocytosis, no anemia, platelets within normal limits. Coagulation studies within normal limits. Electrolytes within normal limits. No LARA. Liver enzymes and bilirubin within normal limits. Lipase normal at 91. On reassessment, patient still in significant pain. Will administer 15 mg of IV Toradol. Due to patient's significant symptomatic cholelithiasis without evidence of acute cholecystitis, so the patient would benefit from admission for continued pain control and prompt cholecystectomy. I did discuss the patient's case with on-call surgeon, Dr. Coffman, who agreed for surgical consultation and evaluation the following morning. He does state that Dr. Cardenas will be the evaluating physician at that time. I then discussed the patient's case with Dr. Alfaro for admission and he was in agreement to admit the patient to observation. Will start patient on maintenance fluids and make n.p.o. at midnight. Will order 4 mg IV morphine every 4 hours as needed. I discussed this plan with patient and she was in agreement with this plan. She was subsequently admitted to the hospital for further management. Procedures Limited Ultrasound Interpretation:: Limited RUQ ultrasound performed by me, Rich Barraza MD Indication: Abdominal pain, Nausea, Vomiting Identified structures: -Gallbladder -Gallbladder wall -Common bile duct -Liver Findings: Sonographic Robb sign: Present Gallstones: Present Sludge: Absent Pericholecystic fluid: Absent Maximal GB wall thickness (mm): [normal is </= 3mm] 3.1 mm, slightly thickened Common bile duct width (mm): [normal is </= 6mm] Normal Gallbladder width (cm): [normal is < 4cm] Normal Gallbladder length (cm): [normal is < 10cm] Normal Impression: Cholelithiasis with borderline thickened gallbladder wall Images were saved to permanent archive The study was technically adequate CPT 43492-73 This study was performed by me, and I personally interpreted all images/videos. Based on my clinical judgement, these images were adequate and did not necessitate further imaging. Critical Care Critical Care Time Critical Care Time: No
[2025-07-12] MEDS: MORPHINE 4MG/ML SYRINGE 4 MG IV ×2 (21:27→22:37)
[2025-07-12] MEDS: ONDANSETRON 4MG/2ML VIAL 4 MG IV ×2 (21:27→22:29)
[2025-07-12] MEDS: LACTATED RINGERS 1000ML 1,000 ML 999 ML IV (21:28)
[2025-07-12 21:32] LABS: Albumin Level 4.8 g/dl (3.5-5.0); Chloride 101 mmol/L (98-107); Potassium 3.9 mmoL/L (3.5-5.1); Sodium 140 mmol/L (136-145)
[2025-07-12 21:35] LABS: Alanine Aminotransferase 31 U/L (12-78); Albumin/Globulin Ratio 1.5 (1.1-1.8); Alkaline Phosphatase 73 U/L (38-126); Anion Gap 11.9 mEq/L (5-15); Aspartate Amino Transferase 34 U/L (14-36); Bilirubin,Total 0.4 mg/dl (0.2-1.3); Blood Urea Nitrogen 7 mg/dl (7-17); Calcium 9.3 mg/dl (8.4-10.2); Carbon Dioxide 31 mmol/L (22.0-30.0); Creatinine Clearance Estimated 182 mL/min (50-200); Creatinine,Serum 0.60 mg/dl (0.52-1.04); Estimated Glomerular Filt Rate 114 ml/min (>60); GFR (African American) 138 ML/MIN (>60); Globulin 3.1 g/dL (1.3-3.2); Glucose 123 mg/dl (74-100); Lipase 91 U/L (23-300); Total Protein,Serum 7.9 g/dl (6.3-8.2)
[2025-07-12 21:45] LABS: HCG Qualitative, Serum Negative (Negative)
[2025-07-12 22:26] LABS: Hematocrit 38.4 % (37.0-47.0); Hemoglobin 13.2 g/dL (12.2-16.2); Immature Granulocytes % 0.2 %; Mean Corpuscular HGB Conc 34.4 g/dL (31.8-35.4); Mean Corpuscular Hemoglobin 29.4 pg (27.0-31.2); Mean Corpuscular Volume 85.5 fl (81-99); Nucleated Red Blood Cells % 0 %; Platelet Count 329 K/mm3 (142-424); Red Blood Count 4.49 M/mm3 (4.20-5.40); Red Cell Distribution Width-SD 37.8 fL; White Blood Count 8.8 K/mm3 (4.8-10.8)
[2025-07-12] MEDS: KETOROLAC 15MG/ML VIAL 15 MG IV (22:29)
[2025-07-12] MEDS: LACTATED RINGERS 1000ML 1,000 ML 100 ML IV (22:29)
[2025-07-12 22:38] LABS: Activated Partial Thrombo Time 27.6 seconds (22.8-30.6); INR 0.92 (0.9-1.1); Prothrombin Time 10.3 seconds (10.1-12.5)
[2025-07-12 22:49] VITALS: BP 109/75; PULSE 73; RESP 16; TEMP 36.6; O2SAT 100
--- NOTE | 2025-07-12 22:53 | PC.NURSE ---
pt arrived to floor by wheel chair at this time
[2025-07-12 23:00] VITALS: BP 129/67; PULSE 68; RESP 14; TEMP 36.7; O2SAT 100
[2025-07-12 23:30] VITALS: RESP 14; O2SAT 100
[2025-07-13 04:00] VITALS: BP 111/66; PULSE 94; RESP 14; TEMP 37; O2SAT 96; BMI 37.3
--- NOTE | 2025-07-13 04:10 | PC.NURSE ---
Pt. was admitted to Med/Surg from the ED with gall bladder stones. Pt. was having RUQ pain 2 weeks ago and saw her PCP. Pt. had an outpatient US that showed gall stones. Pt. had an appointment to see a surgeon on but the pain to RUQ increased to 10/10. Pt. also had nausea and vomiting . Upon arrival to the floor patients pain was 2/10. no nausea or vomiting. Pt. has IV fluids infusing. Pt. sleeping well overnight. Pt. NPO with surgery consult this morning. Personal items and call bliss in reach.Bed in low and locked positiion. Safety measures in place,
[2025-07-13] MEDS: MORPHINE 4MG/ML SYRINGE 4 MG IV (06:59)
--- NOTE | 2025-07-13 07:19 | P.CONS_ITS ---
History of Present Illness *Admission Date: 07/13/25 *Reason for visit:: Symptomatic cholelithiasis *History of present illness: Is a 34-year-old female with a known diagnosis of cholelithiasis per ultrasound. She was scheduled to see Dr. Coffman later this week in the office. She developed increasing right upper quadrant pain and presented to the emergency department overnight. She states that she remains uncomfortable; however, her level of pain has improved significantly. No fevers. No jaundice. Forwarded from emergency department evaluation: General Adult HPI General Chief complaint: Abdominal Pain Stated complaint: Possbile Galbladder Attack Time Seen by Provider: 07/12/25 21:11 Mode of Arrival: Ambulatory Source of Information: Patient Description of Symptoms (Recalled from ER Triage Doc. by RN): Pt has been having RUQ pain for several days, seen Angelina and he did US of her gallbladder, told she had stones and needed to see surgeon. Pt is suppose to go but increased pain this evening 10/ associated with nausea and vomiting. History of Present Illness HPI narrative: Estela Lopez is a 34y female with a history of gallstones who presents to the emergency department for complaints of right upper quadrant pain, nausea and vomiting. Patient states that she has had issues with her gallbladder for approximately a year and had an ultrasound on the of this month that confirmed that she has gallstones. She is scheduled to meet with Dr. Coffman on for consultation, however over the last 3 days, she has had significantly worsening right upper quadrant pain with uncontrolled nausea and vomiting. She states that a lot of times of vomiting makes it better but it has not improved recently. She states that the pain radiates to her right back. She denies any diarrhea, pale stools, dark urine or urinary symptoms. She has been taking ibuprofen at home without relief. [facility] Disclaimer: The information contained in this section may have been updated after the patient was seen, as this information can be updated by other users. Medical History (Updated 07/13/25 @ 07:23 by Cristian Cardenas MD) Dysuria Ovarian cyst Surgical History No history of previous surgery Family History Other Cancer Thyroid disorder Social History (Updated 07/12/25 @ 23:28 by Che Chi RN) Smoking Status: Never smoker alcohol intake: never current occupational status: employed and other Travel in the last 8 weeks?: None household members: other housing: other current occupational exposures/hazards: No caffeine: Yes Have you lived/traveled outside [place] in past 30 days?: No Contact w/someone who lives/traveled outside [place] past 30 days?: No Exposure to someone with infectious disease in past 14 days?: No Do you have a fever (greater than 100.4 F or 38 C)?: No Have you tested positive for COVID-19?: No Exposed to someone with COVID-19 in past 14 days?: No Do you have a sore throat?: No Do you have a cough?: No Do you have any weakness?: No Do you have any diarrhea?: No Are you experiencing any unusual bleeding?: No Do you have any muscle aches/pain?: No Do you have any abdominal pain?: No Are you experiencing loss of taste or smell?: No Review of Systems Review of Systems Review of systems:: pertinent systems reviewed and negative unless documented below *Gastrointestinal Gastrointestinal: Reports as per [facility] Meds Home Medications and Allergies Home Medications ?Medication ?Instructions ?Recorded ?Confirmed ?Type prochlorperazine maleate 5 mg 5 mg PO TID PRN Nausea A nd Vomiting 04/09/24 07/12/25 History tablet omeprazole 20 mg capsule,delayed 20 mg PO DAILY 14 day s #14 caps 06/08/24 07/12/25 Rx release New Prescriptions to Start Prescriptions: Allergies Allergy/AdvReac Type Severity Reaction Status Date / Time promethazine (From Phenergan) Allergy Verified 05/05/24 08:53 Exam (Inpt) Vital signs and Labs for Last 24 Hours: Temp Pulse Resp BP Pulse Ox O2 Del Method 98.6 F 94 H 14 111/66 96 Room Air 07/13/25 04:00 07/13/25 04:00 07/13/25 04:00 07/13/25 04:00 07/13/25 04:00 07/13/25 06:42 Laboratory Results - last 24 hr 07/12/25 21:10: WBC 8.8, RBC 4.49, Hgb 13.2, Hct 38.4, MCV 85.5, MCH 29.4, MCHC 34.4, RDW 12.2, Plt Count 329, MPV 10.2, Neut % (Auto) 56.4, Lymph % (Auto) 35.9, [place] % (Auto) 5.9, Eos % (Auto) 1.1, Baso % (Auto) 0.5, Neut # (Auto) 5.0, Lymph # (Auto) 3.2, [place] # (Auto) 0.5, Eos # (Auto) 0.1, Baso # (Auto) 0.0, PT 10.3, INR 0.92, APTT 27.6, Sodium 140, Potassium 3.9, Chloride 101, Carbon Dioxide 31 H, Anion Gap 11.9, BUN 7, Creatinine 0.60, Estimated Creat Clear 182, Estimated GFR 114, Est GFR ( Amer) 138, Glucose 123 H, Calcium 9.3, Total Bilirubin 0.4, AST 34, ALT 31, Alkaline Phosphatase 73, Total Protein 7.9, Albumin 4.8, Globulin 3.1, Albumin/Globulin Ratio 1.5, Lipase 91, Serum HCG, Qual Negative I & O for Labs for Last 24 Hours: Intake & Output 07/10/25 07/11/25 07/12/25 07/13/25 11:59 11:59 11:59 11:59 Intake Total 1120 / 1120 Output Total 400 / 400 Balance 720 / 720 Weight 198 lb 1 oz Constitutional: no acute distress Respiratory: Absent respiratory distress Cardiac: Absent Tachycardia Comments:: Exam deferred secondary to patient stating that she is now feeling better (concerns for inciting spasm-associated recurrent pain). Results Labs 07/12/25 21:10 07/12/25 21:10 Labs: Laboratory Results - last 24 hr 07/12/25 21:10: WBC 8.8, RBC 4.49, Hgb 13.2, Hct 38.4, MCV 85.5, MCH 29.4, MCHC 34.4, RDW 12.2, Plt Count 329, MPV 10.2, Neut % (Auto) 56.4, Lymph % (Auto) 35.9, [place] % (Auto) 5.9, Eos % (Auto) 1.1, Baso % (Auto) 0.5, Neut # (Auto) 5.0, Lymph # (Auto) 3.2, [place] # (Auto) 0.5, Eos # (Auto) 0.1, Baso # (Auto) 0.0, PT 10.3, INR 0.92, APTT 27.6, Sodium 140, Potassium 3.9, Chloride 101, Carbon Dioxide 31 H, Anion Gap 11.9, BUN 7, Creatinine 0.60, Estimated Creat Clear 182, Estimated GFR 114, Est GFR ( Amer) 138, Glucose 123 H, Calcium 9.3, Total Bilirubin 0.4, AST 34, ALT 31, Alkaline Phosphatase 73, Total Protein 7.9, Albumin 4.8, Globulin 3.1, Albumin/Globulin Ratio 1.5, Lipase 91, Serum HCG, Qual Negative Imaging US - abdomen: report reviewed and image reviewed Assessment and Plan *Assessment and plan (1) Symptomatic cholelithiasis: Status: Acute Category: Medical Code(s): K80.20 - Calculus of gallbladder without cholecystitis without obstruction Plan: Crescendo symptoms status post recent ultrasound. Some relief of symptoms overnight. She states that she remains uncomfortable ; however, the degree of pain has significantly improved. Although she does not need emergent intervention, significant delay is not warranted. She states that she is fine to go home and have surgery soon . Okay for discharge home from surgical standpoint with plans for cholecystectomy on July 15 She is being scheduled for laparoscopic cholecystectomy for of this week (July 15) I have discussed the risks and benefits including, but not limited to: Bleeding Infection Damage to surrounding tissue Inherent risks of sedation The patient agrees to proceed.
[2025-07-13 08:00] VITALS: BP 95/57; PULSE 71; RESP 16; TEMP 36.6; O2SAT 98
--- NOTE | 2025-07-13 08:04 | EXP.HP ---
History of Present Illness *Admission Date: 07/13/25 *Reason for visit:: Gallbladder attack with acute abdominal pain, nausea and vomiting *History of present illness: Is a 34-year-old female with a known diagnosis of cholelithiasis per ultrasound. She was scheduled to see Dr. Coffman later this week in the office. She developed increasing right upper quadrant pain and presented to the emergency department overnight. She states that she remains uncomfortable; however, her level of pain has improved significantly. No fevers. No jaundice. Forwarded from emergency department evaluation: General Adult HPI General Chief complaint: Abdominal Pain Stated complaint: Possbile Galbladder Attack Time Seen by Provider: 07/12/25 21:11 Mode of Arrival: Ambulatory Source of Information: Patient Description of Symptoms (Recalled from ER Triage Doc. by RN): Pt has been having RUQ pain for several days, seen Angelina and he did US of her gallbladder, told she had stones and needed to see surgeon. Pt is suppose to go but increased pain this evening 10/10 associated with nausea and vomiting. History of Present Illness HPI narrative: Estela Lopez is a 34y female with a history of gallstones who presents to the emergency department for complaints of right upper quadrant pain, nausea and vomiting. Patient states that she has had issues with her gallbladder for approximately a year and had an ultrasound on the of this month that confirmed that she has gallstones. She is scheduled to meet with Dr. Coffman on for consultation, however over the last 3 days, she has had significantly worsening right upper quadrant pain with uncontrolled nausea and vomiting. She states that a lot of times of vomiting makes it better but it has not improved recently. She states that the pain radiates to her right back. She denies any diarrhea, pale stools, dark urine or urinary symptoms. She has been taking ibuprofen at home without relief. The above as per emergency room documentation and note per Dr. Lou. With exam this morning patient states she still has some abdominal pain but it is much better after jus receiving morphine. In the ER she received a liter of IV fluids, Ketorolac 15 mg IV, 4 mg of morphine sulfate IV, 4 mg of Zofran IV The morphine and other pain medicines have helped her pain. She continues with IV fluids and 100 and hour. To note patient has been experiencing indigestion for about 3 months. She has had periodic abdominal pain relieved with relaxation and Tylenol. The episode yesterday was acute after eating some chicken and dumplings. She states she did not eat very much at all. The severe abdominal pain was followed by persistent nausea and vomiting episodes. This is why she came to the emergency room. Patient has been on famotidine for her indigestion and has taken Tylenol as needed. Otherwise she is a healthy individual. [facility] Disclaimer: The information contained in this section may have been updated after the patient was seen, as this information can be updated by other users. Medical History (Updated 07/13/25 @ 07:23 by Cristian Cardenas MD) Dysuria Ovarian cyst Surgical History No history of previous surgery Family History Other Cancer Thyroid disorder Social History (Updated 07/12/25 @ 23:28 by Che Chi RN) Smoking Status: Never smoker alcohol intake: never current occupational status: employed and other Travel in the last 8 weeks?: None household members: other housing: other current occupational exposures/hazards: No caffeine: Yes Other Medical History Have you received the Flu Vaccine for this season: No Have you received the Pneumonia Vaccine: No Review of Systems Constitutional Constitutional: Denies body ache(s), Denies fever(s), Denies frequent falls and Denies headache(s) Eyes Eyes: Denies change in vision ENT Ears, Nose, Mouth, and Throat: Denies dizziness, Denies otalgia, Denies headache(s), Denies nasal congestion, Denies post nasal drip and Denies sore throat *Cardiovascular Cardiovascular: Denies chest pain, Denies dyspnea and Denies palpitations *Respiratory Respiratory: Denies cough and Denies dyspnea *Gastrointestinal Gastrointestinal: Reports abdominal pain (Mostly in the right upper quadrant), Denies diarrhea, Denies dyspepsia, Denies hematemesis, Denies hematochezia, Denies loose stools, Denies melena, Reports nausea and Reports vomiting *Genitourinary Genitourinary: Denies difficulty voiding *Musculoskeletal Musculoskeletal: Denies abnormal gait and Denies myalgias *Neurologic Neurologic: Denies abnormal gait, Denies dizziness, Denies frequent falls and Denies headache(s) Endocrine Endocrine: Denies palpitations Meds Home Medications and Allergies Home Medications ?Medication ?Instructions ?Recorded ?Confirmed ?Type prochlorperazine maleate 5 mg 5 mg PO TID PRN Nausea And Vomiting 04/09/24 07/12/25 History tablet omeprazole 20 mg capsule,delayed 20 mg PO DAILY 14 days #14 caps 06/08/24 07/12/25 Rx release New Prescriptions to Start Prescriptions: Allergies Allergy/AdvReac Type Severity Reaction Status Date / Time promethazine (From Phenergan) Allergy Verified 05/05/24 08:53 Exam Data for Last 24 hours Vital signs and Labs for Last 24 Hours: Temp Pulse Resp BP Pulse Ox O2 Del Method 98.6 F 94 H 14 111/66 96 Room Air 07/13/25 04:00 07/13/25 04:00 07/13/25 04:00 07/13/25 04:00 07/13/25 04:00 07/13/25 06:42 Laboratory Results - last 24 hr 07/12/25 21:10: WBC 8.8, RBC 4.49, Hgb 13.2, Hct 38.4, MCV 85.5, MCH 29.4, MCHC 34.4, RDW 12.2, Plt Count 329, MPV 10.2, Neut % (Auto) 56.4, Lymph % (Auto) 35.9, [place] % (Auto) 5.9, Eos % (Auto) 1.1, Baso % (Auto) 0.5, Neut # (Auto) 5.0, Lymph # (Auto) 3.2, [place] # (Auto) 0.5, Eos # (Auto) 0.1, Baso # (Auto) 0.0, PT 10.3, INR 0.92, APTT 27.6, Sodium 140, Potassium 3.9, Chloride 101, Carbon Dioxide 31 H, Anion Gap 11.9, BUN 7, Creatinine 0.60, Estimated Creat Clear 182, Estimated GFR 114, Est GFR ( Amer) 138, Glucose 123 H, Calcium 9.3, Total Bilirubin 0.4, AST 34, ALT 31, Alkaline Phosphatase 73, Total Protein 7.9, Albumin 4.8, Globulin 3.1, Albumin/Globulin Ratio 1.5, Lipase 91, Serum HCG, Qual Negative I & O for Last 24 hours: Intake & Output 07/10/25 07/11/25 07/12/25 07/13/25 11:59 11:59 11:59 11:59 Intake Total 1120 / 1120 Output Total 400 / 400 Balance 720 / 720 Weight 198 lb 1 oz Constitutional Constitutional: no acute distress *Routine HEENT Exam Head: Present normocephalic and atraumatic Eye: Present PERRL; Absent conjunctival icterus, scleral injection or conjunctivae pink ENT: Present mucous membranes moist and oropharynx clear *Routine Neck Exam Neck: Present supple and full ROM; Absent carotid bruit, lymphadenopathy or thyromegaly *Routine Respiratory Exam Respiratory: Present CTA bilaterally (Anteriorly and posteriorly) *Routine Cardiovascular Exam Cardiovascular: Present RRR (70/min) *Routine Abdominal Exam Abdominal: Present soft, normoactive bowel sounds, tenderness (Right upper quadrant) and distended (Some distention right upper quadrant) *Routine Rectal Exam Rectal:: deferred *Routine Genitalia Exam Genitalia:: deferred *Routine Extremities Exam Extremities: Present pulses intact; Absent edema or calf tenderness *Routine Neurological Exam Neurological: Present alert and oriented X3 Assessment and Plan *Assessment and plan (1) Symptomatic cholelithiasis: Status: Acute Category: Medical Code(s): K80.20 - Calculus of gallbladder without cholecystitis without obstruction Plan Patient has been seen by surgeon, Dr. Cardenas, who scheduled her for lap xiang on 07/15/2025 And felt she could go home. Patient has been n.p.o. and has thus far not had any p.o. food/liquids. Will start her on Levsin and try clear liquids this morning. Dr. Alfaro entry - Saw patient, agree with above note, will actually give her a full liquid diet now. If she does well will plan discharge later today.
[2025-07-13] MEDS: HYOSCYAMINE 0.125MG TABLET 0.125 MG PO ×2 (09:09→11:23)
--- NOTE | 2025-07-15 10:03 | SW/DCPLANNER ---
Spoke with patient's . Patient's stated that she is doing good and that she is having surgery this morning. Patient's stated that they are aware of her appointment. Patient's stated that she was not prescribed any new medicine. Patient's stated that they have no concerns or questions at this time. Charles MURILLO [employer]
--- NOTE | 2025-07-23 16:43 | EXP.DC.SUM ---
General Admission date:: 07/12/25 Discharge date: 07/15/25 HPI HPI HPI: Is a 34-year-old female with a known diagnosis of cholelithiasis per ultrasound. She was scheduled to see Dr. Coffman later this week in the office. She developed increasing right upper quadrant pain and presented to the emergency department overnight. She states that she remains uncomfortable; however, her level of pain has improved significantly. No fevers. No jaundice. Forwarded from emergency department evaluation: General Adult HPI General Chief complaint: Abdominal Pain Stated complaint: Possbile Galbladder Attack Time Seen by Provider: 07/12/25 21:11 Mode of Arrival: Ambulatory Source of Information: Patient Description of Symptoms (Recalled from ER Triage Doc. by RN): Pt has been having RUQ pain for several days, seen Angelina and he did US of her gallbladder, told she had stones and needed to see surgeon. Pt is suppose to go but increased pain this evening 10/10 associated with nausea and vomiting. History of Present Illness HPI narrative: Estela Lopez is a 34y female with a history of gallstones who presents to the emergency department for complaints of right upper quadrant pain, nausea and vomiting. Patient states that she has had issues with her gallbladder for approximately a year and had an ultrasound on the of this month that confirmed that she has gallstones. She is scheduled to meet with Dr. Coffman on for consultation, however over the last 3 days, she has had significantly worsening right upper quadrant pain with uncontrolled nausea and vomiting. She states that a lot of times of vomiting makes it better but it has not improved recently. She states that the pain radiates to her right back. She denies any diarrhea, pale stools, dark urine or urinary symptoms. She has been taking ibuprofen at home without relief. The above as per emergency room documentation and note per Dr. Lou. With exam this morning patient states she still has some abdominal pain but it is much better after jus receiving morphine. In the ER she received a liter of IV fluids, Ketorolac 15 mg IV, 4 mg of morphine sulfate IV, 4 mg of Zofran IV The morphine and other pain medicines have helped her pain. She continues with IV fluids and 100 and hour. To note patient has been experiencing indigestion for about 3 months. She has had periodic abdominal pain relieved with relaxation and Tylenol. The episode yesterday was acute after eating some chicken and dumplings. She states she did not eat very much at all. The severe abdominal pain was followed by persistent nausea and vomiting episodes. This is why she came to the emergency room. Patient has been on famotidine for her indigestion and has taken Tylenol as needed. Otherwise she is a healthy individual. Hospital Course Hospital Course Hospital Course: The patient was seen in consultation by Dr. Cardenas who scheduled her for a lap cholecystectomy on 07/15/2025. She was given a full liquid diet and started on Levsin. She was stable to be discharged home and will follow-up for outpatient surgery. Exam Data for Last 24 hours Vital signs and Labs for Last 24 Hours: Temp Pulse Resp BP Pulse Ox O2 Del Method 97.9 F 71 16 95/57 L 98 Room Air 07/13/25 08:00 07/13/25 08:00 07/13/25 08:00 07/13/25 08:00 07/13/25 08:00 07/13/25 15:00 Narrative: Constitutional Constitutional: no acute distress *Routine HEENT Exam Head: Present normocephalic and atraumatic Eye: Present PERRL; Absent conjunctival icterus, scleral injection or conjunctivae pink ENT: Present mucous membranes moist and oropharynx clear *Routine Neck Exam Neck: Present supple and full ROM; Absent carotid bruit, lymphadenopathy or thyromegaly *Routine Respiratory Exam Respiratory: Present CTA bilaterally (Anteriorly and posteriorly) *Routine Cardiovascular Exam Cardiovascular: Present RRR (70/min) *Routine Abdominal Exam Abdominal: Present soft, normoactive bowel sounds, tenderness (Right upper quadrant) and distended (Some distention right upper quadrant) *Routine Rectal Exam Rectal:: deferred *Routine Genitalia Exam Genitalia:: deferred *Routine Extremities Exam Extremities: Present pulses intact; Absent edema or calf tenderness *Routine Neurological Exam Neurological: Present alert and oriented X3 DS: Diagnosis Discharge Diagnosis (1) Symptomatic cholelithiasis: Status: Deleted Code(s): K80.20 - Calculus of gallbladder without cholecystitis without obstruction Meds Home Medications and Allergies Home Medications ?Medication ?Instructions ?Recorded ?Confirmed ?Type famotidine 20 mg tablet 20 mg PO 07/21/25 07/21/25 History New Prescriptions to Start Prescriptions: Allergies Allergy/AdvReac Type Severity Reaction Status Date / Time promethazine (From Phenergan) Allergy Nausea Verified 07/21/25 13:19 Discharge Plan Disposition Patient Disposition: Home, Self-Care Follow up Plan Follow up with: Cristian Cardenas MD [Staff Physician, General Surgery] - 07/15/25 9:15 am Referral Note: plan to be registered an one hour and half before. nothing to eat or drink after midnight Prescriptions/Medication Reconciliation: Discontinued prochlorperazine maleate 5 mg tablet 5 mg PO TID PRN (Reason: Nausea And Vomiting) Patient Comments: TAKE 1 TABLET BY MOUTH THREE TIMES DAILY NEEDED omeprazole 20 mg capsule,delayed release(DR/EC) 20 mg PO DAILY 14 Days Qty: 14 0RF No Action famotidine 20 mg tablet 20 mg PO Patient Comments: TAKE 1 TABLET BY MOUTH TWICE DAILY Problem Reconciliation Problems Reviewed?: Yes Patient Discharge Instructions ACTIVITY: Continue current activity, Ambulate as tolerated and Limited activity DIET: other Additional Instructions: [place]/low-fat diet Patient Instructions: DI for Gallstones, DI for Epigastric Pain Print Language: [place] Providers Primary Care Provider: Brandon Alfaro Admit Provider: Brandon Alfaro Attending Provider: Brandon Alfaro
== END 2025-07-13 15:04 | disposition home or self-care (01) ==
LOC: ER 21:13 → 2ND 22:30
PROVIDERS: Admitting Provider Family Medicine; Emergency Provider Student in an Organized Health Care Education/Training Program; PCP Family Medicine; Visit Provider Family Medicine
DX: K80.20 Calculus of gallbladder without cholecystitis without obstruction (principal); Z88.8 Allergy status to other drugs, medicaments and biological substances
CPT/HCPCS: 76705; 80053; 83690; 84703; 85025; 85610; 85730; 96361; 96374; 96375; 96376; 99284; G0378; J1885; J2270; J2405; J7120

== ENCOUNTER 2025-07-15 07:30 | Day surgery (SDC) | payer OTHER, SELFPAY ==
[2025-07-14 10:33] VITALS: BMI 36.6
[2025-07-15] VITALS (12 sets, daily range): BP systolic 109–135; BP diastolic 66–87; PULSE 70–98; RESP 14–18; TEMP 36.4–36.7; O2SAT 95–98
[2025-07-15] MEDS: 0.9 % SODIUM CHLORIDE 1000ML 1,000 ML 25 ML IV (08:02)
--- NOTE | 2025-07-15 08:23 | EXP.ANES.CKL ---
[facility] Disclaimer: The information contained in this section may have been updated after the patient was seen, as this information can be updated by other users. Medical History Dysuria Ovarian cyst Surgical History No history of previous surgery Family History Other Cancer Thyroid disorder Social History (Updated 07/15/25 @ 07:59 by Chani Mak RN) Smoking Status: Never smoker alcohol intake: never substance use type: denies use current occupational status: employed Travel in the last 8 weeks?: None household members: other housing: other current occupational exposures/hazards: No caffeine: Yes [facility] Anesthesia Checklist Patient Identification Patient Identification: Arm Band and Verbal (Name & ) Structural Data Admitted From: Home Planned Operative Procedure/s: Laparoscopic cholecystectomy Consent for Planned Operative Procedure(s) Verified: Yes Verified Documents: Surgical Consent NPO Status Verified Time NPO: 00:00 Additional verifications Anesthesia Reactions: No Hx Blood Transfusions: No Blood Transfusion Reaction: No Airway Assessment Mallampati Score:: Class II C-Spine Mobility Assessed: Yes TMJ Mobility Assessed: Yes Dentition: Good Dentition Neurological Assessment Level of Consciousness: Awake, Alert and Appropriate Hx Seizures: No Numbness or tingling in extremities: No Anesthesia Plan Anesthesia Risk discussed: Yes Anesthesia Plan: Verified ASA Class: II Anesthesia Type: General
--- NOTE | 2025-07-15 09:39 | P.OP_ITS ---
Date of procedure: 07/15/25 Pre-op Diagnosis:: Acute on chronic calculous cholecystitis Post-op Diagnosis:: Same with the addition of the following: Tiny scattered liver nodules Procedure performed:: Laparoscopic cholecystectomy Liver biopsy Surgeon:: Cristian Cardenas MD WATCH [employer]SEMBLY INSTRUCTOR:: rOion Golden Anesthesia: GETJaleesa Estimated blood loss (mL): 15 Operative findings:: Pericholecystic fat stranding Fairly severe infundibular thickening Tiny scattered serosal margin liver nodules (1 to 3 mm in diameter) Operative note:: After informed consent was obtained, the patient was taken to the operating room and placed in the supine position. General anesthesia was induced and the abdomen was prepped and draped in a sterile fashion. After infiltration with local anesthetic an infraumbilical incision was made. A Veress needle was placed in position. The abdomen was insufflated. A 5 mm optical trocar was placed in position. Under direct visualization, a 12 mm trocar was placed in the subxiphoid position and 2 additional 5 mm trocars were placed in the right upper quadrant. The gallbladder was elevated up and over the liver margin. The tissue around the cystic duct was carefully dissected. 3 clips were placed proximally and the duct was transected with harmonic jumana. Harmonic jumana were then utilized to dissect the gallbladder away from the liver margin with careful attention to the control of the cystic artery. The gallbladder was placed in a retrieval bag and removed through the subxiphoid trocar site. The right upper quadrant was thoroughly irrigated. No active bleeding or bile leak was noted. Tiny scattered serosal margin liver nodules were noted (1 to 3 mm in diameter). There are a few nodules noted along the anterior left liver margin and a few scattered along the right anterior liver margin. One of the largest along the left anterior margin was targeted for biopsy after informed consent was obtained verbally from the patient's . A combination of harmonic jumana and scissors were utilized to remove the superficial nodule. It was passed off for pathologic evaluation. Harmonic jumana were then utilized to achieve hemostasis of the biopsy bed. Fascia at the subxiphoid trocar site was reapproximated utilizing the NeoClose device. The remaining trocars were removed. All wounds were irrigated and skin was closed with 4-0 Monocryl in a subcuticular fashion. Steri-Strips were applied. The patient's anesthetic agents were reversed and extubation was completed prior to transfer to recovery in stable condition. Condition: stable Disposition: PACU Specimens:: Gallbladder and contents Complications:: No immediate
[2025-07-15] MEDS: LIDOCAINE 1% 20ML MDV 20 ML (10:00)
--- NOTE | 2025-07-15 11:18 | P.PNANES_ITS ---
[facility] Anesthesia Record Part I Anesthesia Record I Intake, IV Amount: 800 Hydration: Adequate Estimated blood loss (mL): 15 Urine output (mL): 0 Blood Products used (#): none Blood Pressure: 134/79 SaO2: 98 Pulse Rate: 96 Airway Patency: Patent Respiratory Rate: 14 Temperature: 98 F Patient is:: Drowsy and Stable Stable to PACU at:: 11:13
[2025-07-15] MEDS: ONDANSETRON 4MG/2ML VIAL 4 MG IV (11:28)
[2025-07-15] MEDS: MORPHINE 2MG/ML SYRINGE 2 MG IV (11:32)
[2025-07-15] MEDS: KETOROLAC 30MG/ML VIAL 30 MG IV (12:00)
[2025-07-15] MEDS: HYDROMORPHONE 2MG/ML SYRINGE 0.5 MG IV (12:08)
--- NOTE | 2025-07-15 12:35 | EXP.ANES.II ---
[facility] Anesthesia Record Part II Anesthesia Record Part II Discharge Time: 12:03 Destination: Surgical Day Care (OP Surgery) PACU nurse assessment reviewed?: Yes Patient Condition:: Good Anesthesia Complications:: None Swallowing reflex intact?: Yes Airway Patency: Patent Cyanosis?: No Blood Pressure: 111/75 SaO2: 96 Respiratory Rate: 16 Pulse Rate: 70 Temperature: 97.5 F Mental Status: Alert & Oriented Pain level:: 10 Nausea and/or vomitting:: None Intake, IV Amount: 0 Hydration: Adequate
== END 2025-07-15 12:43 | disposition home or self-care (01) ==
PROVIDERS: PCP Family Medicine; Visit Provider Surgery
PROC: 0FT44ZZ Resection of Gallbladder, Percutaneous Endoscopic Approach (ICD-10-PCS; CPT 47562; principal; 2025-07-15 09:10)
DX: K80.12 Calculus of gallbladder with acute and chronic cholecystitis without obstruction (principal); K75.3 Granulomatous hepatitis, not elsewhere classified; Z79.899 Other long term (current) drug therapy; Z88.8 Allergy status to other drugs, medicaments and biological substances
CPT/HCPCS: 47379; 47562; 96374; J0690; J1171; J1885; J2003; J2250; J2270; J2405; J2704; J3010; J7030